=== PATIENT | female | born 1960 | race Caucasian/White ===

== ENCOUNTER 2018-11-08 07:01 | Outpatient (CLI) | payer MEDICAID | END 2018-11-08 07:02 | disposition critical access hospital (66) | LOC: EMS 07:01 | PROVIDERS: ATTEND Surgery | DX: R10.30 Lower abdominal pain, unspecified (principal); R11.0 Nausea; Z87.19 Personal history of other diseases of the digestive system | CPT/HCPCS: A0425; A0427; A0999 ==

== ENCOUNTER 2018-11-08 07:31 | Inpatient (IN) | payer MEDICAID ==
[2018-11-08] MEDS ORDERED: SODIUM CHLORIDE 0.9% 1,000 ML IV ONE ×2 (07:48→09:33)
[2018-11-08] MEDS ORDERED: HYDROmorphone 1 MG/ML CARPUJECT IVP STA ×2 (07:48→10:10)
[2018-11-08] MEDS ORDERED: KETOROLAC 30 MG/ML VIAL IVP STA (07:48)
--- NOTE | 2018-11-08 07:51 | ED Physician Documentation ---
PD HPI ABD PAIN - Stated complaint Stated Complaint: ABD PX - History obtained from History obtained from: Patient - History of Present Illness Timing - onset: How many hours ago (5), Today (awakened from sleep about 2 am with mid abd pain/cramping associated with vomiting. Did have a small bowel movement about 3:30 AM without any relief of the pain. She has had repetitive vomiting multiple times through the night. She denied any fever. She did not have any cold or flu symptoms the last few days. She states this feels similar to a bowel obstruction she had in 2016 that was treated nonoperatively.) Timing - duration: Hours (5) Timing - details: Abrupt onset, Still present Quality: Cramping, Aching, Fullness/distended, Pain Location: All over / everywhere, Periumbilical Radiation: No: Chest, Lower back Improved by: No: Vomiting, BM Worsened by: Moving, Palpation Associated symptoms: Nausea, Vomiting. No: Fever, Diarrhea, Constipation, Dysuria, Chest pain Similar symptoms before: Diagnosis (SBO 2016 treated nonoperatively) Recently seen: Not recently seen Review of Systems Constitutional: denies: Fever, Chills, Myalgias Nose: denies: Rhinorrhea / runny nose, Congestion Throat: denies: Sore throat Cardiac: denies: Chest pain / pressure Respiratory: denies: Cough GI: reports: Abdominal Pain, Abdominal Swelling, Nausea, Vomiting. denies: Constipation, Diarrhea, Bloody / black stool : denies: Dysuria, Frequency Neurologic: denies: Generalized weakness, Near syncope PD PAST MEDICAL HISTORY - Past Medical History Cardiovascular: None Respiratory: None Neuro: None Endocrine/Autoimmune: None - Present Medications Home Medications: Ambulatory Orders Medication Instructions Recorded Confirmed Dessicated Thyroid Otc 0 mg PO DAILY 11/08/18 11/08/18 - Allergies Allergies/Adverse Reactions: Allergies Allergy/AdvReac Type Severity Reaction Status Date / Time No Known Drug Allergies Allergy Verified 11/08/18 07:41 PD ED PE NORMAL - Vitals Vital signs reviewed: Yes - General General: Alert and oriented X 3, Well developed/nourished, Other (appears very uncomfortable. ) - HEENT HEENT: PERRL (nonicteric), Moist mucous membranes, Pharynx benign - Neck Neck: Supple, no meningeal sign, No adenopathy - Cardiac Cardiac: RRR, No murmur - Abdomen Abdomen: Non distended (but does feel firm in mid abdomen.), No organomegaly, Other (tender mid abdomen to palpation and percussion. Not tender RUQ/RLQ focally. ). No: Normal bowel sounds (increased centrally) - Female Female : Deferred - Rectal Rectal: Deferred - Back Back: No CVA TTP - Derm Derm: Normal color, Warm and dry - Extremities Extremities: No tenderness to palpate, Normal ROM s pain, No edema - Neuro Neuro: Alert and oriented X 3, No motor deficit, Normal speech Results - Vitals Vitals: Vital Signs - 24 hr 11/08/18 11/08/18 07:33 09:30 Temperature 35.8 C L Heart Rate 66 70 Respiratory 24 14 Rate Blood Pressure 194/108 H 180/85 H O2 Saturation 100 99 Oxygen O2 Source Room air - Labs Labs: Laboratory Tests 11/08/18 11/08/18 11/08/18 07:35 07:55 07:55 WBC 11.9 H RBC 4.27 Hgb 13.0 Hct 38.9 MCV 91.0 MCH 30.3 MCHC 33.3 RDW 14.6 Plt Count 267 MPV 7.9 Neut # (Auto) 10.2 H Lymph # (Auto) 1.4 L Meade # (Auto) 0.2 Eos # (Auto) 0.0 Baso # (Auto) 0.0 Absolute Nucleated RBC 0.00 Nucleated RBC % 0.0 Sodium 135 Potassium 3.2 L Chloride 100 L Carbon Dioxide 23 Anion Gap 12.0 BUN 13 Creatinine 0.6 Estimated GFR (MDRD) 103 Glucose 186 H Lactic Acid Calcium 9.1 Magnesium Total Bilirubin 0.6 AST 28 ALT 21 Alkaline Phosphatase 74 C-Reactive Protein Total Protein 7.4 Albumin 4.5 Globulin 2.9 Albumin/Globulin Ratio 1.6 Lipase 26 Carcinoembryonic Ag 2.0 Urine Color Urine Clarity Urine pH Ur Specific Linwood Urine Protein Urine Glucose (UA) Urine Ketones Urine Occult Blood Urine Nitrite Urine Bilirubin Urine Urobilinogen Ur Leukocyte Esterase Urine RBC Urine WBC Ur Squamous Epith Cells Amorphous Sediment Urine Bacteria Ur Microscopic Review Urine Culture Comments 11/08/18 11/08/18 11/08/18 07:55 07:55 08:40 WBC RBC Hgb Hct MCV MCH MCHC RDW Plt Count MPV Neut # (Auto) Lymph # (Auto) Meade # (Auto) Eos # (Auto) Baso # (Auto) Absolute Nucleated RBC Nucleated RBC % Sodium Potassium Chloride Carbon Dioxide Anion Gap BUN Creatinine Estimated GFR (MDRD) Glucose Lactic Acid Calcium Magnesium 2.1 Total Bilirubin AST ALT Alkaline Phosphatase C-Reactive Protein < 1.0 Total Protein Albumin Globulin Albumin/Globulin Ratio Lipase Carcinoembryonic Ag Urine Color YELLOW Urine Clarity CLEAR Urine pH 8.0 H Ur Specific Linwood 1.020 Urine Protein TRACE Urine Glucose (UA) 100 H Urine Ketones TRACE Urine Occult Blood MODERATE H Urine Nitrite NEGATIVE Urine Bilirubin NEGATIVE Urine Urobilinogen 0.2 (NORMAL) Ur Leukocyte Esterase NEGATIVE Urine RBC 6-10 H Urine WBC 0-3 Ur Squamous Epith Cells RARE Squamous Amorphous Sediment Few Urine Bacteria Rare Ur Microscopic Review INDICATED Urine Culture Comments NOT INDICATED 11/08/18 11:00 WBC RBC Hgb Hct MCV MCH MCHC RDW Plt Count MPV Neut # (Auto) Lymph # (Auto) Meade # (Auto) Eos # (Auto) Baso # (Auto) Absolute Nucleated RBC Nucleated RBC % Sodium Potassium Chloride Carbon Dioxide Anion Gap BUN Creatinine Estimated GFR (MDRD) Glucose Lactic Acid 2.9 H Calcium Magnesium Total Bilirubin AST ALT Alkaline Phosphatase C-Reactive Protein Total Protein Albumin Globulin Albumin/Globulin Ratio Lipase Carcinoembryonic Ag Urine Color Urine Clarity Urine pH Ur Specific Linwood Urine Protein Urine Glucose (UA) Urine Ketones Urine Occult Blood Urine Nitrite Urine Bilirubin Urine Urobilinogen Ur Leukocyte Esterase Urine RBC Urine WBC Ur Squamous Epith Cells Amorphous Sediment Urine Bacteria Ur Microscopic Review Urine Culture Comments - Rads (name of study) abd CT Radiology: Prelim report reviewed (Edematous wall in the descending colon with some pericolonic edema. No true obstruction pattern per se.) PD MEDICAL DECISION MAKING - ED course Complexity details: reviewed results (CT is revealing some large bowel colitis. This could be inflammatory infectious or potentially ischemic. She has not had vascular problems in the past. She is in the normal rhythm. We can give some doses of anti-inflammatory as well as antibiotics for the potential of infectious. She is still having significant pain and nausea. She is not vomiting anymore. I therefore think a pseudoobstruction type pattern related to the colitis. I talked with the hospitalist and will have her in for treatment.), considered differential, d/w patient Departure - Departure Disposition: [facility] DC/Xfer Clinical Impression: Acute colitis, Pseudo-obstruction of intestine Abdominal pain Qualifiers: Abdominal location: periumbilical Qualified Code(s): R10.33 - Periumbilical pain Condition: Stable Record reviewed to determine appropriate education?: Yes Discharge Date/Time: 11/08/18 12:54
[2018-11-08 08:03] LABS: BASOPHILS % (AUTO) 0.1 %; EOSINOPHILS % (AUTO) 0.1 %; LYMPHOCYTES # (AUTO) 1.4 10^3/uL (1.5-3.5); LYMPHOCYTES % (AUTO) 11.9 %; MEAN CORPUSCULAR HEMOGLOBIN 30.3 pg (27.0-31.0); MEAN CORPUSCULAR HGB CONC 33.3 g/dL (32.0-36.0); MEAN PLATELET VOLUME 7.9 fL (7.9-10.8); MONOCYTES # (AUTO) 0.2 10^3/uL (0.0-1.0); MONOCYTES % (AUTO) 2.1 %; NEUTROPHILS # (AUTO) 10.2 10^3/uL (1.5-6.6); NEUTROPHILS % (AUTO) 85.8 %; PLT - PLATELET COUNT 267 10^3/uL (130-450); RED BLOOD COUNT 4.27 10^6/uL (4.20-5.40); RED CELL DISTRIBUTION WIDTH 14.6 % (12.0-15.0); WHITE BLOOD COUNT 11.9 x10^3/uL (4.8-10.8)
[2018-11-08] MEDS ORDERED: IOVERSOL 320 100 ML VIAL IVP ONE ×2 (08:11→20:28)
[2018-11-08 08:16] LABS: ALBUMIN 4.5 g/dL (3.2-5.5); ALBUMIN/GLOBULIN RATIO 1.6 (1.0-2.2); BILIRUBIN,TOTAL 0.6 mg/dL (0.2-1.0); CALCIUM 9.1 mg/dL (8.5-10.3); CREATININE 0.6 mg/dL (0.4-1.0); TOTAL PROTEIN 7.4 g/dL (6.7-8.2)
[2018-11-08 08:47] LABS: BILIRUBIN,URINE NEGATIVE (NEGATIVE); GLUCOSE, URINE (UA) 100 mg/dL (NEGATIVE); KETONES,URINE (UA) TRACE mg/dL (NEGATIVE); LEUKOCYTE ESTERASE, URINE NEGATIVE (NEGATIVE); NITRITE,URINE NEGATIVE (NEGATIVE); OCCULT BLOOD,URINE MODERATE (NEGATIVE); PROTEIN,URINE TRACE mg/dL (NEGATIVE); UROBILINOGEN,URINE 0.2 (NORMAL) E.U./dL (NORMAL)
[2018-11-08 08:48] LABS: CLARITY,URINE CLEAR (CLEAR)
[2018-11-08] MEDS: IOVERSOL 320 100 ML VIAL IVP ONE ×2 (09:00→20:45)
[2018-11-08 09:03] LABS: AMORPHOUS SEDIMENT,UR Few /LPF; BACTERIA,URINE Rare /HPF (None Seen); SQUAMOUS EPITHELIAL CELL,UR RARE Squamous (<= Few)
[2018-11-08] MEDS ORDERED: ONDANSETRON 4 MG/2 ML VIAL IVP STA (09:33)
[2018-11-08] MEDS ORDERED: ACETAMINOPHEN 1,000 MG/100 ML 100 ML IV STA (09:33)
--- NOTE | 2018-11-08 10:15 | CT Report ---
Reason: mid abd pain and vomiting; prior SBO Procedure Date: 11/08/2018 Accession Number: [id number] / [id number] Procedure: CT - Abdomen/Pelvis W/ CPT Code: FULL RESULT: EXAM: CT ABDOMEN AND PELVIS WITH CONTRAST EXAM DATE: 11/08/2018 08:46 AM. CLINICAL HISTORY: Mid abdominal pain and vomiting in a 58-year-old female with history of prior small bowel obstruction. COMPARISONS: None. TECHNIQUE: Emergent axial helical CT imaging was performed through the abdomen and pelvis. IV contrast: 80 mL Optiray 320. Enteric contrast: None. Reconstructions: Coronal and sagittal. In accordance with CT protocol optimization, one or more of the following dose reduction techniques were utilized for this exam: automated exposure control, adjustment of mA and/or KV based on patient size, or use of iterative reconstructive technique. FINDINGS: Lung Bases: Unremarkable. Liver: Normal. No masses. Gallbladder/Bile Ducts: No gallstones, wall thickening or dilated bile ducts. Spleen: Normal. Pancreas: Normal. Adrenal Glands: Normal. Kidneys: Normal. No masses, nephrolithiasis, hydroureter or hydronephrosis. Peritoneal Cavity/Bowel: Small amount of free fluid in the left upper quadrant adjacent to the spleen as well as small amount of ascites in the deep pelvis. Stomach and proximal to mid small bowel appear normal. Mild to moderate thickening of the left colon. Moderate stool in the right colon. No obstruction. Pelvic Organs: Small to moderate amount of free fluid in the deep pelvis. Uterus surgically absent. No adnexal mass or cyst. Contrast in a grossly normal urinary bladder. Vasculature: No aneurysms or other significant abnormality. Bones: Unremarkable for age. Other: None. IMPRESSION: Small amount of free fluid in the left upper quadrant and pelvis with edematous changes of the left colon with pericolonic edema suggesting inflammatory bowel disease. No definite obstruction. No free air or abscess. Remainder of the abdomen and pelvis unremarkable. RADIA
[2018-11-08] MEDS ORDERED: metroNIDAZOLE 500 MG/100 ML 500 MG/100 ML BAG IV ONE (11:01)
[2018-11-08] MEDS ORDERED: cefTRIAXone 1 GM VIAL IVP STA (11:01)
[2018-11-08] MEDS ORDERED: HYDROmorphone 0.5 MG/0.5 ML SYRINGE IVP PRN (11:58)
[2018-11-08] MEDS ORDERED: LACTATED RINGERS 1,000 ML IV SCH (12:00)
[2018-11-08] MEDS ORDERED: metroNIDAZOLE 500 MG/100 ML 500 MG/100 ML BAG IV STA (12:11)
[2018-11-08] MEDS ORDERED: ACETAMINOPHEN 1,000 MG/100 ML 100 ML IV PRN (12:14)
[2018-11-08] MEDS: ONDANSETRON 4 MG/2 ML VIAL IVP PRN ×2 (13:13→19:23)
[2018-11-08] MEDS: FAMOTIDINE 20 MG/50 ML 50 ML IV SCH ×2 (13:45→20:32)
[2018-11-08] MEDS: HYDROmorphone 0.5 MG/0.5 ML SYRINGE IVP PRN ×3 (14:00→21:13)
[2018-11-08] MEDS: SODIUM CHLORIDE FLUSH 0.9% 10 ML SYRINGE IVP PRN ×2 (14:01→15:50)
[2018-11-08] MEDS: PROCHLORPERAZINE 10 MG/2 ML VIAL IVP PRN ×2 (15:49→23:13)
[2018-11-08] MEDS: KETOROLAC 15 MG/ML VIAL IVP SCH (16:26)
[2018-11-08] MEDS: SODIUM CHLORIDE FLUSH 0.9% 10 ML SYRINGE IVP SCH (17:22)
[2018-11-08] MEDS ORDERED: metroNIDAZOLE 500 MG/100 ML 500 MG/100 ML BAG IV SCH (19:00)
[2018-11-08] MEDS ORDERED: DIATR MEGLU/DIATRIZOATE SODIUM 120 ML BOTTLE PO ONE (19:09)
--- NOTE | 2018-11-08 22:06 | CT Report ---
Reason: LLQ pain/worse sepsis, poss ischmic bowel or perf Procedure Date: 11/08/2018 Accession Number: [id number] / [id number] Procedure: CT - Abdomen/Pelvis Angio CPT Code: FULL RESULT: EXAM: CT ANGIOGRAM ABDOMEN AND PELVIS WITH CONTRAST EXAM DATE: 11/08/2018 08:53 PM. CLINICAL HISTORY: Left lower quadrant pain/worse sepsis, poss ischemic bowel or perf. COMPARISONS: ABDOMEN/PELVIS W/ 11/08/2018 8:46 AM. TECHNIQUE: Routine helical CT angiogram imaging was performed through the abdomen and pelvis in the arterial phase. IV contrast: OPTIRAY 320 100mL. Enteric contrast: No. Reconstructions: Coronal, sagittal, and 3D MIP reconstructions. In accordance with CT protocol optimization, one or more of the following dose reduction techniques were utilized for this exam: automated exposure control, adjustment of mA and/or KV based on patient size, or use of iterative reconstructive technique. FINDINGS: Lung bases: Mild distal esophageal wall thickening. Liver: Unremarkable. Gallbladder: Unremarkable. Bile ducts: Unremarkable. Pancreas: Unremarkable. Spleen: Unremarkable. Adrenals: Unremarkable. Kidneys: No hydronephrosis. Small right lower pole renal cyst measuring 1.3 cm. Tiny nonspecific low density upper pole left kidney. Bowel: Multiple dilated small bowel loops seen in the abdomen and pelvis more on the left side, more dilated than on the prior exam, one of the most dilated ducts bowel loops is seen in the pelvis measuring 4.5 cm. There is focal transition to decompressed small bowel seen on the right side of the abdomen see axial image 115. These findings are concerning for worsening small bowel obstruction. Evaluation is limited without oral contrast limiting the evaluation for bowel wall thickening, with small bowel loops on the left side appearing less thickened than on the prior, however they are more dilated on today's exam. No pneumatosis is seen. Small bowel loops are decompressed distal to this. There is adjacent edema and ascites. Overall moderate ascites in the abdomen and pelvis, increased from the prior. No free air. Pelvis: The bladder is filled with contrast. Remaining pelvic organs appear unremarkable. Vasculature: No acute findings. No abdominal aortic aneurysm. The celiac and superior mesenteric arteries appear patent. No evidence for arterial occlusion or hemodynamically significant stenosis. The inferior mesenteric artery appears patent. Bilateral renal arteries appear patent. The bilateral iliac arteries appear unremarkable. Bones: No acute bone findings. IMPRESSION: 1. Multiple dilated small bowel loops seen in the abdomen and pelvis more on the left side, more dilated than on the prior exam, one of the most dilated ducts bowel loops is seen in the pelvis measuring 4.5 cm. There is focal transition to decompressed small bowel seen on the right side of the abdomen see axial image 115. These findings are concerning for worsening small bowel obstruction. Clinically, the lactic acid is increasing. This could represent a closed loop small bowel obstruction causing strangulation of the small bowel and small bowel ischemia. Correlate clinically. No pneumatosis is seen. There is adjacent edema and ascites. Overall moderate ascites in the abdomen and pelvis, increased from the prior. No free air. No evidence for bowel perforation. See above. 2. Mild distal esophageal wall thickening. 3. The superior mesenteric artery appears patent. No evidence for arterial occlusion or hemodynamically significant stenosis. NADEEMA The above findings were discussed with Yue Haynes by Dr. Jazmin Grayson at 09:55 PM hrs on 11/08/2018.
[2018-11-08] MEDS: LACTATED RINGERS 1,000 ML IV SCH (22:17)
[2018-11-08 22:52] LABS: BASOPHILS % (AUTO) 0.2 %; HGB - HEMOGLOBIN 14.2 g/dL (12.0-16.0); LYMPHOCYTES % (AUTO) 4.6 %; MEAN CORPUSCULAR HEMOGLOBIN 30.6 pg (27.0-31.0); MEAN CORPUSCULAR HGB CONC 33.2 g/dL (32.0-36.0); MEAN CORPUSCULAR VOLUME 92.1 fL (81.0-99.0); MEAN PLATELET VOLUME 7.9 fL (7.9-10.8); MONOCYTES % (AUTO) 4.1 %; NEUTROPHILS % (AUTO) 91.1 %; PLT - PLATELET COUNT 290 10^3/uL (130-450); RED BLOOD COUNT 4.64 10^6/uL (4.20-5.40); RED CELL DISTRIBUTION WIDTH 14.7 % (12.0-15.0); WHITE BLOOD COUNT 20.2 x10^3/uL (4.8-10.8)
[2018-11-08 23:01] LABS: ABNORMAL LYMPHS % (MANUAL) 0 %
[2018-11-08 23:04] LABS: ALBUMIN 3.9 g/dL (3.2-5.5); ALBUMIN/GLOBULIN RATIO 1.2 (1.0-2.2); BILIRUBIN,TOTAL 0.9 mg/dL (0.2-1.0); CALCIUM 9.1 mg/dL (8.5-10.3); CREATININE 0.6 mg/dL (0.4-1.0); TOTAL PROTEIN 7.1 g/dL (6.7-8.2)
[2018-11-08 23:20] LABS: BAND NEUTROPHILS % (MANUAL) 7 %; DIFFERENTIAL COMMENT MANUAL DIFFERENTIAL; LYMPHOCYTES # (MANUAL) 0.6 10^3/uL (1.5-3.5); LYMPHOCYTES % (MANUAL) 3 %; MONOCYTES # (MANUAL) 0.2 10^3/uL (0.0-1.0); NEUTROPHILS # (MANUAL) 19.4 10^3/uL (1.5-6.6); NEUTROPHILS % (MANUAL) 89 %; PLATELET ESTIMATE, MANUAL NORMAL (130-450,000) (NORMAL); RBC MORPHOLOGY (MULTIPLE) NORMAL APPEARANCE (NORMAL)
--- NOTE | 2018-11-08 23:36 | CONSULTATION NOTE ---
Referring Provider Name of Referring Provider:: Dr. Haynes Consult Date: 11/08/18 Chief Complaint - Chief Complaint Chief Complaint: Left upper quadrant abdominal pain History of Present Illness - Admitted From Admitted From:: [facility] ED - History Obtained From Records Reviewed: Yes History obtained from: Patient and Dr. Yue Haynes Exam Limitations: Patient mildly somnolent due to pain medication - History of Present Illness HPI Comment/Other: This is a very pleasant 58-year-old female who was evaluated in room 2211 at the request of Dr. Yue Haynes. The patient came in to the emergent department emergency department at [facility] complaining of the rather abrupt onset of left upper quadrant pain. It would point during the interview with Dr. Hodge the patient stated that it felt similar to the small bowel obstruction that she had had that resolved spontaneously back in 2016. The patient was initially nauseous but did not vomit. The patient had a small bowel movement earlier today. The patient denies melena, hematochezia, or hematemesis. The patient denies unexpected weight loss. The pain is described as quite sharp and is unremitting other than with pain medication. Position does not help or hurt the pain. The patient is not currently nauseous. 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 - Past Surgical History /LEGAL DEPARTMENT MANAGER: reports: Hysterectomy, Other - POLST Patient has POLST: No Meds/Allgy - Home Medications Home Medications: Ambulatory Orders Medication Instructions Recorded Confirmed Dessicated Thyroid Otc 0 mg PO DAILY 11/08/18 11/08/18 - Allergies Allergies/Adverse Reactions: Allergies Allergy/AdvReac Type Severity Reaction Status Date / Time No Known Drug Allergies Allergy Verified 11/08/18 07:41 Review of Systems - Gastrointestinal Gastrointestinal: reports: Abdominal pain, Other (No distention, constipation, diarrhea, rectal bleeding, black stools, bile emesis or coffee-ground emesis, or poor appetite.) - All Other Systems All Other Systems: reports: Reviewed and negative Exam - Vital Signs Reviewed Vital Signs: Yes Vital Signs: Vital Signs x48h Temp Pulse Resp BP Pulse Ox 11/08/18 23:23 36.6 C 98 16 130/82 H 93 11/08/18 22:51 36.8 C 96 18 147/88 H 96 11/08/18 21:00 36.2 C L 81 18 163/80 H 98 11/08/18 18:51 37.1 C 86 18 161/89 H 95 11/08/18 17:00 36.4 C L 90 16 171/100 H 98 - Physical Exam General Appearance: positive: No acute distress, Other (Again, mildly somnolent due to pain medication.) Eyes Bilateral: positive: No lid inflammation, Conjunctivae nml, No scleral icterus ENT: positive: No signs of dehydration Neck: positive: Trachea midline Respiratory: positive: Chest non-tender, No respiratory distress, Breath sounds nml Cardiovascular: positive: Regular rate & rhythm, No murmur, No gallop Abdomen: positive: Non-tender (Absolutely no peritoneal findings.), No organomegaly, No distention, Abnml bowel sounds (Ever so slightly decreased.) Rectal: positive: Other (Deferred.) Skin: positive: Color nml Extremities: positive: Non-tender, Nml appearance Neurologic/Psychiatric: positive: Oriented x3, Motor nml, Sensation nml, Mood/affect nml (Again, slightly somnolent but aware of this and stating that it is likely due to the pain medication.) Conclusion/Plan - Diagnosis Diagnosis: Colitis - Plan Plan: I have recommended that the patient have a repeat CT scan with oral contrast to determine whether or not this represents a complete obstruction or partial obstruction. She does not have peritoneal findings. She states that she does not wish to undergo surgery unless absolutely necessary. Other than an elevated lactic acid there is nothing on my initial evaluation that would suggest that the patient has got any abdominal catastrophe. Following the CT scan with oral contrast I would like to reevaluate. Currently, the patient is afebrile, normotensive, not tachycardic, not tachypneic, with a soft nondistended abdomen. I wish to thank Dr. Yue Haynes very much for this consultation and I will follow the patient along with her. 45 minutes of [id number] time spent with the patient, the majority of which was spent in discussion, coordination of care, and completion of the requisite paperwork Elvis disclaimer: This document was created in part using voice recognition technology. Because of the inherent limitations of the system ([employer] user manual states that the licensee understands that speech recognition is a statistical process and that recognition errors are inherent in the process), occasional same sounding word substitutions and grammatical errors do occur and persist despite proofreading. Please read this document for context. - Lab Results Lab results reviewed: Yes Fish Bones: 11/08/18 22:48 11/08/18 22:48 - Diagnostic Imaging Results Diagnostic Imaging Results: positive: Final report reviewed, Read independently
[2018-11-08] MEDS ORDERED: PIPERACILLIN/TAZOBACTAM 3.375 GM in SODIUM CHLORIDE 0.9% MINIBAG 100 ML IV SCH (23:45)
--- NOTE | 2018-11-09 00:07 | HISTORY & PHYSICAL EXAMINATION ---
DATE OF SERVICE: 11/08/2018 Physician: Yue Haynes MD HISTORY OF PRESENT ILLNESS: This is a 58-year-old white female who has no chronic diseases, is on no daily prescription medications. She has a past history of a hysterectomy and 1 subsequent episode of a small-bowel obstruction that was treated with bowel rest, nonsurgically. Patient awoke this morning in the middle of the night with abdominal cramping pain, then nausea and vomiting, and she had 1 small bowel movement but then had worsening abdominal pain plus vomiting and presented to the emergency room. Her imaging shows that she has colitis plus bowel obstruction in that area, and she is being admitted for management of this. PAST MEDICAL HISTORY 1. Hysterectomy. 2. Prior bowel obstruction. ALLERGIES: NONE. MEDICATIONS AT HOME: None. FAMILY HISTORY: Noncontributory. SOCIAL HISTORY: No alcohol use, no cigarette use, no illicit drug use. REVIEW OF SYSTEMS: These symptoms are similar to the bowel obstruction that she had several years ago, except this time there is "more pain." Her nausea has been improved with the antiemetics given here. She feels dizzy with the narcotics, however. There has been no fever, previous diarrhea or constipation. No dysuria. She denies any chest pain, dyspnea, upper respiratory symptoms. She denies any melena or hematochezia and no hematemesis. There was no travel outside the country. A comprehensive review of systems was performed, and the pertinent positives are listed; the rest are negative. PHYSICAL EXAMINATION GENERAL: Thin white female. She appears cachectic. She has sunken eyes. VITAL SIGNS: Blood pressure 180/85, pulse of 60-70 in sinus rhythm, afebrile, room air saturation 99%. HEENT: Reveals dry oral mucosa and very sunken eyes, eye orbits. NECK: Without JVD. CHEST: Clear. HEART: Heart sounds are distant, regular rhythm. No audible murmur. ABDOMEN: Soft, not distended. Negative bowel sounds. No organomegaly. No guarding or rebound. EXTREMITIES: No clubbing, cyanosis, or edema. NEUROLOGIC: Grossly intact. LABORATORY DATA: Sodium 135, potassium 3.2. Normal BUN and creatinine. Normal liver tests. Normal magnesium of 2.1. Lactic acid 2.9 and on repeat 3 hours later 2.7. White blood count 11.9 with a left shift, hemoglobin 13, with a normal MCV and normal platelet count of 267. No INR was done. Urinalysis showed pH of 8 with trace of ketones, moderate occult blood, leukocyte esterase negative, and rare bacteria. IMAGING: Abdomen and pelvis CT showed no gallstones or gallbladder abnormality, normal pancreas, normal kidneys. She has a small amount of free fluid in the left upper quadrant near the spleen and in the deep pelvis. She has mild to moderate thickening of the left colon, and there is stool in the right colon. The uterus is surgically absent. IMPRESSION/DIAGNOSES 1. Sepsis by virtue of elevated lactic acid and colitis. 2. Colitis as per CT imaging. 3. Cachexia on physical exam. 4. Pseudo bowel obstruction, probably related to the bowel wall thickening. No significant dilated loops of bowel or air-fluid levels on imaging, however. The obstructive symptoms are most notable on physical exam. 5. History of prior small-bowel obstruction. 6. Remote abdominal surgery. PLAN 1. Admit patient to a med/surg bed. 2. Treat with IV fluids, bowel rest with n.p.o. status, and NG tube for decompression if she continues to have repeat emesis. 3. Follow her lactic acid until it is below 2. 4. Follow her CRP daily as well. 5. Begin empiric IV antibiotics for colitis treatment in a septic patient which will include ceftriaxone iv and metronidazole IV. 6. Follow her daily CBC, electrolytes and magnesium. Replace electrolytes when needed. 7. A surgical consult will be requested for the possibility of bowel ischemia, since her pain is out of proportion to signs and symptoms of obstruction. 8. Will also order a CEA because, if elevated, would point to a malignant tumor as a possible cause of these symptoms, and her physical exam is suspicious for malignancy because of the significant cachexia. CODE STATUS: FULL CODE. DEEP VENOUS THROMBOSIS PROPHYLAXIS: SCDs. ATTESTATION: Patient is expected to be discharged or transferred to another facility within 96 hours: Yes. TD: 11/08/2018 16:40 DULCE
--- NOTE | 2018-11-09 01:12 | ANESTHESIA ---
Pre-Anesthesia VS, & Labs - Diagnosis Diagnosis Colitis - Procedure exploratory laparotomy Vital Signs: Temp Pulse Resp BP Pulse Ox 36.5 C 103 H 16 148/86 H 98 11/09/18 00:30 11/09/18 01:00 11/09/18 01:00 11/09/18 00:30 11/09/18 01:00 Height 5 ft 6 in Weight (kg) 64.5 kg Body Mass Index 22.9 - NPO Last Fluid Intake: oral contrast 1 hr ago - Is Patient ?: No - Lab Results Current Lab Results: Laboratory Tests 11/09/18 00:05: Lactic Acid 5.3 H* 11/08/18 22:48: Sodium 134 L, Potassium 4.0, Chloride 102, Carbon Dioxide 20 L, Anion Gap 12.0, BUN 18, Creatinine 0.6, Estimated GFR (MDRD) 103, Glucose 173 H, Calcium 9.1, Total Bilirubin 0.9, AST 38, ALT 25, Alkaline Phosphatase 69, Total Protein 7.1, Albumin 3.9, Globulin 3.2, Albumin/Globulin Ratio 1.2 11/08/18 22:48: WBC 20.2 H, RBC 4.64, Hgb 14.2, Hct 42.8, MCV 92.1, MCH 30.6, MCHC 33.2, RDW 14.7, Plt Count 290, MPV 7.9, Neut # (Auto) Not Reportable, Lymph # (Auto) Not Reportable, [place] # (Auto) Not Reportable, Eos # (Auto) Not Reportable, Baso # (Auto) Not Reportable, Absolute Nucleated RBC Not Reportable, Total Counted 100, Band Neuts % (Manual) 7, Abnorm Lymph % (Manual) 0, Nucleated RBC % Not Reportable, Neutrophils # (Manual) 19.4 H, Lymphocytes # (Manual) 0.6 L, Monocytes # (Manual) 0.2, Eosinophils # (Manual) 0.0, Basophils # (Manual) 0.0, Differential Comment MANUAL DIFFERENTIAL, Manual Slide Review Indicated, Platelet Estimate NORMAL (130-450,000), RBC Morph Micro Appear NORMAL APPEARANCE 11/08/18 21:20: Lactic Acid 6.5 H* 11/08/18 17:35: Lactic Acid 5.0 H* 11/08/18 14:30: Lactic Acid 2.7 H 11/08/18 11:00: Lactic Acid 2.9 H 11/08/18 07:55: Magnesium 2.1 11/08/18 07:55: C-Reactive Protein < 1.0 11/08/18 07:55: Sodium 135, Potassium 3.2 L, Chloride 100 L, Carbon Dioxide 23, Anion Gap 12.0, BUN 13, Creatinine 0.6, Estimated GFR (MDRD) 103, Glucose 186 H, Calcium 9.1, Total Bilirubin 0.6, AST 28, ALT 21, Alkaline Phosphatase 74, Total Protein 7.4, Albumin 4.5, Globulin 2.9, Albumin/Globulin Ratio 1.6, Lipase 26 11/08/18 07:55: WBC 11.9 H, RBC 4.27, Hgb 13.0, Hct 38.9, MCV 91.0, MCH 30.3, MCHC 33.3, RDW 14.6, Plt Count 267, MPV 7.9, Neut # (Auto) 10.2 H, Lymph # (Auto) 1.4 L, [place] # (Auto) 0.2, Eos # (Auto) 0.0, Baso # (Auto) 0.0, Absolute Nucleated RBC 0.00, Nucleated RBC % 0.0 11/08/18 07:35: Carcinoembryonic Ag 2.0 Fish Bones: 11/08/18 22:48 11/08/18 22:48 Home Medications and Allergies Home Medications: Ambulatory Orders Dessicated Thyroid Otc 0 mg PO DAILY 11/08/18 Active Medications Hydromorphone HCl (Dilaudid Inj Syringe) 1 mg IVP Q2H PRN PRN Reason: Pain 8 to 10 Last Admin: 11/08/18 21:13 Dose: 1 mg Famotidine (Pepcid 20 Mg/50 Ml) 50 mls @ 100 mls/hr IV BID JACQUES Last Infusion: 11/08/18 21:29 Dose: Infused Metronidazole (Flagyl 500 Mg/100 Ml) 500 mg in 100 mls @ 100 mls/hr IV Q8H JACQUES Last Infusion: 11/08/18 20:20 Dose: Infused Acetaminophen (Ofirmev) 100 mls @ 400 mls/hr IV Q6HR PRN PRN Reason: Pain or Fever > 38C (100.4F) Last Infusion: 11/08/18 17:54 Dose: Infused Lactated Ringer's (Lr) 1,000 mls @ 200 mls/hr IV .Q5H [facility] Last Admin: 11/08/18 22:17 Dose: 200 mls/hr Piperacillin Sod/Tazobactam (Sod 3.375 gm/ Sodium Chloride) 100 mls @ 200 mls/hr IV Q6HR [facility] Last Infusion: 11/09/18 00:30 Dose: Infused Ketorolac Tromethamine (Toradol Inj (15mg)) 15 mg IVP Q8H [facility] Stop: 11/13/18 16:59 Last Admin: 11/08/18 16:26 Dose: 15 mg Ondansetron HCl (Zofran Inj) 4 mg IVP Q6HR PRN PRN Reason: Nausea / Vomiting Last Admin: 11/08/18 19:23 Dose: 4 mg Polyethylene Glycol (Miralax) 17 gm PO DAILY [facility] Prochlorperazine Edisylate (Compazine Inj) 10 mg IVP Q6HR PRN PRN Reason: Nausea / Vomiting Last Admin: 11/08/18 23:13 Dose: 10 mg Sodium Chloride (Normal Saline Flush 0.9%) 10 ml IVP PRN PRN PRN Reason: NEEDED PER PROVIDER ORDERS Last Admin: 11/08/18 15:50 Dose: 10 ml Sodium Chloride (Normal Saline Flush 0.9%) 10 ml IVP 0100,0900,1700 [facility] Last Admin: 11/08/18 17:22 Dose: Not Given Dessicated Thyroid Otc 0 mg PO DAILY 11/08/18 Allergies/Adverse Reactions: Allergies Allergy/AdvReac Type Severity Reaction Status Date / Time No Known Drug Allergies Allergy Verified 11/08/18 07:41 Anes History & Medical History - Anesthetic History Anesthesia Complications: reports: No previous complications - Medical History Cardiovascular: reports: None Pulmonary: reports: None Gastrointestinal: reports: None Urinary: reports: None Neuro: reports: None Musculoskeletal: reports: None Endocrine/Autoimmune: reports: HyPOthyroidism Blood Disorders: reports: None Psychosocial: reports: Cannabis (daily use) - Surgical History Gynecologic: Hysterectomy, Other Exam General: Alert, Oriented x3, Cooperative, No acute distress Dental: WNL Mouth Openin Fingerbreadth Neck Mobility: Normal Mallampati classification: II Thyromental Distance: less than 4 cm Respiratory: Lungs clear, Normal breath sounds, No respiratory distress, No accessory muscle use Cardiovascular: Regular rate, Normal S1, Normal S2, No murmurs Mental/Cognitive Status: Alert/Oriented X3, Normal for patient Plan Anesthesia Type: General Consent for Procedure(s) Verified and Reviewed: Yes Code Status: Attempt Resuscitation ASA classification: 3-Severe systemic disease Is this case an emergency?: Yes
[2018-11-09] MEDS: KETOROLAC 15 MG/ML VIAL IVP SCH (01:49)
[2018-11-09] MEDS ORDERED: LACTATED RINGERS 1,000 ML IV ONE ×2 (02:03→02:48)
[2018-11-09] MEDS: SODIUM CHLORIDE FLUSH 0.9% 10 ML SYRINGE IVP SCH ×3 (02:09→16:42)
[2018-11-09] MEDS: LACTATED RINGERS 1,000 ML IV SCH ×2 (02:09→02:10)
[2018-11-09] MEDS ORDERED: PHENYLEPHRINE 50 MG/5 ML VIAL IV ONE (03:08)
[2018-11-09] MEDS ORDERED: MIDAZOLAM 2 MG/2 ML VIAL IVP ONE (03:08)
[2018-11-09] MEDS ORDERED: GLYCOPYRROLATE 1 MG/5 ML VIAL IVP ONE (03:08)
[2018-11-09] MEDS ORDERED: PROPOFOL 200 MG/20 ML VIAL IVP ONE (03:08)
[2018-11-09] MEDS ORDERED: VECURONIUM 10 MG VIAL IVP ONE (03:08)
[2018-11-09] MEDS ORDERED: SUCCINYLCHOLINE 200 MG/10 ML VIAL IVP ONE (03:08)
[2018-11-09] MEDS ORDERED: fentaNYL 250 MCG/5 ML VIAL IVP ONE (03:08)
[2018-11-09] MEDS ORDERED: NEOSTIGMINE 1 MG/1 ML 10 ML MDV IVP ONE (03:08)
[2018-11-09] MEDS ORDERED: BACITRACIN OINT TOP ONE (03:19)
--- NOTE | 2018-11-09 03:34 | OPERATIVE REPORT ---
Operative Report - General Admit Date: 11/08/18 Planned Procedure: Exploratory laparotomy, possible small bowel resection, possible colon rese Pre-Op Diagnosis: Abdominal catastrophe Procedure Performed: Exploratory laparotomy with resection of 13 inches of necrotic ileum and ileal- ileostomy Post Op Diagnosis: Necrotic 13 inches of ileum due to very tight band (closed loop obstruction - Procedure Note Primary Surgeon: Bhanu Olvera MD Anesthesia Provider: Dio Smith CRNA Anesthesia Technique: General ET tube IV Fluids (mL): 1,400 Estimated Blood Loss (mL): 5 Urine Output (mL): 125 Drain/Tube Type: Other (None) Complications: None - Other Other Information/Narrative: OPERATIVE DESCRIPTION/REPORT: After verbal and written informed consent was obtained detailing the risks of infection, bleeding requiring transfusion with its risks, nerve injury, and , as well as the possibility of a colostomy, and after I met with the patient confirming the surgery, the patient was brought to the operative suite and placed supine on the operating table. Great care was taken to avoid pressure points to prevent pressure necrosis or nerve injury. Monitoring d evices were applied along with TEDs and pneumatic compressive stockings (to prevent DVT). The patient received preoperative antibiotics for surgical prophylaxis. Dio Smith CRNA sedated and anesthetized the patient for the entire procedure. The patient was prepped and draped in the usual sterile manner. A "time in" then confirmed that the patient was identified with 3 identifiers (name, date and medical record number), the history and physical was in the chart, the signed consent confirming the procedure was in the chart, the patient was in the correct position, the aforementioned prophylactic measures were in place or given, we had the correct personnel and equipment to complete the procedure and that anesthesia, surgery and nursing were given an opportunity to express any concerns. With the agreement of everyone in the room, we proceeded with the operation. A midline incision was made infraumbilically tracing the upper half of the previous incision and taken down to the fascia. The incision extended from the umbilicus to fpc above the pubic tubercle. Once this was taken down to the fascia, the fascia and peritoneum were opened without incident or difficulty. I removed almost 900 mL of dark serous fluid. It was immediately obvious that there was approximately 13 inches of necrotic ileum being choked by a very tight adhesive band approximately the diameter of a dime. I incised that adhesion release in the bowel but it was clear that this bowel was necrotic and would not reperfuse and survive. Notably the distal colon was a bit dusky, but it was clear that this bowel would survive. I used 2 applications of the MARIA C-75 stapler to excise the necrotic bowel. The mesentery was taken using serial application of the LigaSure and the specimen was removed from the operative field. This was done as quickly as possible to avoid any release of acute phase reactants. The dilated proximal and decompressed distal ileum more than "lined up" with 3-0 Vicryl sutures for a side to side antimesenteric anastomosis. The mesenteric defect was closed using a running 3-0 Vicryl suture. With the sutures in place the antimesenteric corner of the staple line was cut off of each of the 2 pieces of bowel and a MARIA C stapler was placed through these openings and fired thus creating the ileoileostomy. The now combined opening in the bowel was closed using another application of the MARIA C 75 stapler taking care not to align the staple lines. The staple lines were then oversewn using interrupted 3-0 Vicryl Lembert sutures. Digital examination revealed the anas tomosis to be widely patent and visual examination revealed that there was no vascular compromise of the bowel. The liver was palpably normal. The small bowel was run from ligament of Treitz to ileocecal valve and with the exception of the anastomosis was noted to be entirely normal. The large bowel appear to be normal with the presence of some hard stool within it. The abdomen was copiously irrigated with over 2 L of warm saline. The fascia was closed using a 0 looped PDS in a running fashion. The fascial closure was started superiorly and run inferiorly a. The subcutaneous tissues w ere copiously irrigated using warm sterile saline and meticulous hemostasis was obtained using Bovie electrocautery. The skin was approximated using skin lea. At this point a time out was performed that confirmed that all the counts were correct, the procedure that was performed, the blood loss, the urine output, the IV fluids administered, and the patients condition. Bacitracin ointment and a dressing were placed on the wound. Having tolerated the procedure well, the patient was subsequently extubated and taken to recovery room in good and stable condition. Elvis disclaimer: This document was created in part using voice recognition technology. Because of the inherent limitations of the system ([employer]'s [employer] user manual states that the licensee understands that speech recognition is a statistical process and that recognition errors are inherent in the process), occasional same sounding word substitutions and grammatical errors do occur and persist despite proofreading. Please read this document for context.
[2018-11-09] MEDS: HYDROmorphone 0.5 MG/0.5 ML SYRINGE IVP PRN ×5 (03:41→19:58)
[2018-11-09] MEDS ORDERED: HYDROmorphone 0.5 MG/0.5 ML SYRINGE ONE (03:45)
[2018-11-09] MEDS: D5NS W/20 MEQ KCL 1,000 ML IV SCH ×3 (04:49→23:50)
[2018-11-09] MEDS: ONDANSETRON 4 MG/2 ML VIAL IVP PRN (04:51)
[2018-11-09] MEDS: ACETAMINOPHEN 1,000 MG/100 ML 100 ML IV SCH ×4 (04:54→21:44)
[2018-11-09] MEDS: PIPERACILLIN/TAZOBACTAM 3.375 GM in SODIUM CHLORIDE 0.9% MINIBAG 100 ML IV SCH ×4 (05:36→23:49)
[2018-11-09 06:09] LABS: BASOPHILS % (AUTO) 0.1 %; HGB - HEMOGLOBIN 12.3 g/dL (12.0-16.0); LYMPHOCYTES # (AUTO) 1.1 10^3/uL (1.5-3.5); LYMPHOCYTES % (AUTO) 7.9 %; MEAN CORPUSCULAR HGB CONC 32.2 g/dL (32.0-36.0); MEAN PLATELET VOLUME 8.2 fL (7.9-10.8); MONOCYTES # (AUTO) 0.8 10^3/uL (0.0-1.0); MONOCYTES % (AUTO) 5.7 %; NEUTROPHILS # (AUTO) 12.5 10^3/uL (1.5-6.6); NEUTROPHILS % (AUTO) 86.3 %; PLT - PLATELET COUNT 247 10^3/uL (130-450); RED CELL DISTRIBUTION WIDTH 14.2 % (12.0-15.0); WHITE BLOOD COUNT 14.5 x10^3/uL (4.8-10.8)
[2018-11-09 06:21] LABS: CALCIUM 8.5 mg/dL (8.5-10.3); CREATININE 0.6 mg/dL (0.4-1.0); CRP - C-REACTIVE PROTEIN 3.7 mg/dL (0-1.0)
[2018-11-09] MEDS: PANTOPRAZOLE 40 MG VIAL IVP SCH (06:42)
--- NOTE | 2018-11-09 07:20 | XRAY Report ---
Reason: ng tube placement Procedure Date: 11/09/2018 Accession Number: [id number] / [id number] Procedure: XR - Chest 1 View X-Ray CPT Code: 45993 FULL RESULT: EXAM: CHEST RADIOGRAPHY EXAM DATE: 11/09/2018 06:48 AM. CLINICAL HISTORY: NG tube placement. COMPARISON: ABDOMEN/PELVIS W/O 11/09/2018 12:23 AM. TECHNIQUE: 1 view. FINDINGS: Support apparatus: NG tube tip is in the fundus of the stomach. Lungs/Pleura: No focal opacities evident. No pleural effusion. No pneumothorax. Mediastinum: Within exam limitations, the cardiomediastinal contour is normal. Other: There is new pneumoperitoneum under the right hemidiaphragm, not seen on CT of the abdomen and pelvis performed earlier today. IMPRESSION: 1. New pneumoperitoneum under the right hemidiaphragm. This was not seen on CT of the abdomen and pelvis performed earlier today. 2. NG tube tip is in the fundus of the stomach. 3. No focal pulmonary consolidation or other acute cardiopulmonary abnormality. RADIA The call report notification system was initiated by Dr. Ruben Faye at 07:17 AM hrs on 11/09/2018. ADDENDUM: 11/09/18 07:28 The above findings were discussed with Dr. Olvera by Dr. Ruben Faye at 07:28 AM hrs on 11/09/2018. Additional clinical information provided by the clinician: The patient had undergone interval abdominal surgery, which likely accounts for the new free air under the diaphragm.
[2018-11-09] MEDS: ENOXAPARIN 40 MG/0.4 ML SYRINGE SUBQ SCH (08:39)
[2018-11-09] MEDS ORDERED: POLYETHYLENE GLYCOL 3350 17 GM PACKET PO SCH (09:00)
[2018-11-09] MEDS ORDERED: cefTRIAXone 2 GM in SODIUM CHLORIDE 0.9% MINIBAG 100 ML IV SCH (09:00)
--- NOTE | 2018-11-09 09:07 | PROVIDER PROGRESS NOTE ---
Assessment/Plan - Problem List (1) Ischemic necrosis of small bowel Assessment/Plan: Repeat imaging last night after admission showed a small bowel obstruction with ischemia. The patient required emergency bowel surgery at 0100 this a.m. She had 13" of bowel resected and a ileal-ileal anastamosis, no colostomy, now has ng tube, and antibiotics were broadened. The CEA was normal. Continue bowel rest, ng tube decompression, iv Zosyn, iv fluids, remain in ICU. Continue Incentive Spirometry. Appreciate GI Surgeon following along with us. (2) Sepsis Assessment/Plan: This a.m. she spiked a fever. He Lactic acid apollo last night parelleling her worsened condition, requiring surgery. Follow L.A. til normalizes. Continue iv antibiotics treating for a GI source of infection. Continue iv Ofirmev for fever and pain and iv narcotics if necessary. Continue iv fluids. - Current Meds Current Meds: Current Medications Generic Name Dose Route Start Last Admin Trade Name Freq PRN Reason Stop Dose Admin Enoxaparin Sodium 40 mg 11/09/18 09:00 11/09/18 08:39 Lovenox SUBQ 40 mg DAILY JACQUES Administration Hydromorphone HCl 1 mg 11/08/18 13:45 11/09/18 05:50 Dilaudid Inj Syringe IVP 1 mg Q2H PRN Administration Pain 8 to 10 Potassium Chloride/Dextrose/Sod Cl 1,000 mls @ 125 mls/hr 11/09/18 04:00 11/09/18 07:00 IV 125 mls/hr .Q8H JACQUES Infusion Acetaminophen 100 mls @ 400 mls/hr 11/09/18 04:00 11/09/18 05:09 Ofirmev IV Infused Q6H JACQUES Infusion Piperacillin Sod/Tazobactam 100 mls @ 200 mls/hr 11/09/18 06:00 11/09/18 0 6:06 Sod 3.375 gm/ Sodium Chloride IV 11/14/18 05:59 Infused Q6HR JACQUES Infusion Ondansetron HCl 4 mg 11/08/18 11:58 11/09/18 04:51 Zofran Inj IVP 4 mg Q6HR PRN Administration Nausea / Vomiting Pantoprazole Sodium 40 mg 11/09/18 07:00 11/09/18 06:42 Protonix IVP 40 mg QDAC JACQUES Administration Prochlorperazine Edisylate 10 mg 11/08/18 11:58 11/08/18 23:13 Compazine Inj IVP 10 mg Q6HR PRN Administration Nausea / Vomiting Sodium Chloride 10 ml 11/09/18 09:00 11/09/18 08:40 Normal Saline Flush 0.9% IVP 20 ml 0100,0900,1700 JACQUES Administration - Lab Result Fish Bone Diagrams: 11/09/18 05:56 11/09/18 05:56 - Additional Planning My Orders: My Active Orders 11/08/18 11:00 Sepsis Onset Time [OTHERS] ONCE 11/08/18 11:58 IO [RC] Q1HR Initiate Bowel Care Protocol [RC] .protocol Initiate Personal Care Protoco [RC] .protocol Oxygen Therapy [RC] Routine Ondansetron Inj [Zofran Inj] 4 mg IVP Q6HR PRN Prochlorperazine Inj [Compazine Inj] 10 mg IVP Q6HR PRN Code Status [OTHERS] Routine Condition of Patient [OTHERS] Routine DVT Prophylaxis [OTHERS] Routine 11/08/18 12:01 SCDs [RC] QSHIFT 11/08/18 12:06 Vital Signs [RC] Q1HR 11/08/18 12:07 Straight Catheter Insertion [RC] PRN 11/08/18 12:13 CULTURE, BLOOD #2 [RM] Stat 11/08/18 12:25 CULTURE, BLOOD #1 [RM] Stat 11/08/18 19:07 NPO [DIET] 11/10/18 05:00 BMP - BASIC METABOLIC PANEL [CHEM] DAILYLAB CBC - COMP BLD CT W/AUTO DIFF [HEME] DAILYLAB CRP - C-REACTIVE PROTEIN [CHEM] DAILYLAB 11/11/18 05:00 BMP - BASIC METABOLIC PANEL [CHEM] DAILYLAB CBC - COMP BLD CT W/AUTO DIFF [HEME] DAILYLAB 11/12/18 05:00 BMP - BASIC METABOLIC PANEL [CHEM] DAILYLAB CBC - COMP BLD CT W/AUTO DIFF [HEME] DAILYLAB Subjective - Subjective Patient Reports: Feeling Better, Resting Comfortably Objective Vital Signs: Vital Signs - 24 hr 11/08/18 11/08/18 11/08/18 09:30 12:11 12:52 Temperature 36.3 C L Heart Rate 70 68 68 Heart Rate [ Brachial] Respiratory 14 20 14 Rate Blood Pressure 180/85 H 188/94 H 188/94 H Blood Pressure [Left Brachial artery] Blood Pressure [Right Brachial artery] O2 Saturation 99 100 99 11/08/18 11/08/18 11/08/18 13:21 14:44 17:00 Temperature 36.6 C 36.4 C L Heart Rate Heart Rate [ 75 79 90 Brachial] Respiratory 16 18 16 Rate Blood Pressure Blood Pressure 189/107 H [Left Brachial artery] Blood Pressure 185/74 H 170/100 H 171/100 H [Right Brachial artery] O2 Saturation 100 94 98 11/08/18 11/08/18 11/08/18 18:51 21:00 22:51 Temperature 37.1 C 36.2 C L 36.8 C Heart Rate Heart Rate [ 86 81 96 Brachial] Respiratory 18 18 18 Rate Blood Pressure Blood Pressure [Left Brachial artery] Blood Pressure 161/89 H 163/80 H 147/88 H [Right Brachial artery] O2 Saturation 95 98 96 11/08/18 11/09/18 11/09/18 23:23 00:15 00:30 Temperature 36.6 C 36.4 C L 36.5 C Heart Rate Heart Rate [ 98 92 101 H Brachial] Respiratory 16 16 16 Rate Blood Pressure Blood Pressure 133/78 H 148/86 H [Left Brachial artery] Blood Pressure 130/82 H [Right Brachial artery] O2 Saturation 93 94 94 11/09/18 11/09/18 11/09/18 01:30 02:00 03:34 Temperature 36.7 C Heart Rate 96 Heart Rate [ 103 H 93 Brachial] Respiratory 16 16 16 Rate Blood Pressure 137/85 H Blood Pressure 132/83 H 124/74 [Left Brachial artery] Blood Pressure [Right Brachial artery] O2 Saturation 98 95 100 11/09/18 11/09/18 11/09/18 03:39 03:44 03:49 Temperature 37.1 C 37.1 C 37.1 C Heart Rate 78 77 81 Heart Rate [ Brachial] Respiratory 16 14 12 Rate Blood Pressure 140/81 H 132/75 H 133/73 H Blood Pressure [Left Brachial artery] Blood Pressure [Right Brachial artery] O2 Saturation 100 100 100 11/09/18 11/09/18 11/09/18 03:54 04:07 04:15 Temperature 37.2 C 37.8 C H Heart Rate 78 Heart Rate [ 82 83 Brachial] Respiratory 16 12 12 Rate Blood Pressure 136/78 H Blood Pressure [Left Brachial artery] Blood Pressure 133/80 H 130/75 [Right Brachial artery] O2 Saturation 100 96 96 11/09/18 11/09/18 11/09/18 04:30 04:45 05:00 Temperature Heart Rate Heart Rate [ 84 84 86 Brachial] Respiratory 14 15 20 Rate Blood Pressure Blood Pressure [Left Brachial artery] Blood Pressure 127/79 128/79 126/77 [Right Brachial artery] O2 Saturation 96 96 96 11/09/18 11/09/18 11/09/18 05:15 06:00 07:00 Temperature 37.5 C Heart Rate Heart Rate [ 91 90 87 Brachial] Respiratory 11 L 10 L 11 L Rate Blood Pressure Blood Pressure [Left Brachial artery] Blood Pressure 129/77 113/73 117/71 [Right Brachial artery] O2 Saturation 98 97 96 11/09/18 11/09/18 08:00 09:00 Temperature 38.1 C H Heart Rate Heart Rate [ 84 86 Brachial] Respiratory 18 16 Rate Blood Pressure Blood Pressure [Left Brachial artery] Blood Pressure 111/93 H 124/76 [Right Brachial artery] O2 Saturation 97 97 Oxygen O2 Source Nasal cannula I&O (Last 24 Hrs): Intake and Output Totals x24h 11/07/18 11/08/18 11/09/18 23:59 23:59 23:59 Intake Total 3500.000 1316.250 Output Total 235 Balance 3500.000 1081.250 General: Alert, Oriented x3 HEENT: Other (Has ng tube) Neck: Supple, No JVD Neuro: Non Focal Cardiovascular: Regular rate, No murmurs Respiratory: No respiratory distress, Breath sounds nml Abdomen: Soft, No tenderness, Other (No bowel sounds) Extremities: No edema - Results Results: Laboratory Results WBC 14.5 x10^3/uL (4.8-10.8) H 11/09/18 05:56 RBC 4.10 10^6/uL (4.20-5.40) L 11/09/18 05:56 Hgb 12.3 g/dL (12.0-16.0) 11/09/18 05:56 Hct 38.1 % (37.0-47.0) 11/09/18 05:56 MCV 93.0 fL (81.0-99.0) 11/09/18 05:56 MCH 30.0 pg (27.0-31.0) 11/09/18 05:56 MCHC 32.2 g/dL (32.0-36.0) 11/09/18 05:56 RDW 14.2 % (12.0-15.0) 11/09/18 05:56 Plt Count 247 10^3/uL (130-450) 11/09/18 05:56 MPV 8.2 fL (7.9-10.8) 11/09/18 05:56 Neut # (Auto) 12.5 10^3/uL (1.5-6.6) H 11/09/18 05:56 Lymph # (Auto) 1.1 10^3/uL (1.5-3.5) L 11/09/18 05:56 [place] # (Auto) 0.8 10^3/uL (0.0-1.0) 11/09/18 05:56 Eos # (Auto) 0.0 10^3/uL (0.0-0.7) 11/09/18 05:56 Baso # (Auto) 0.0 10^3/uL (0.0-0.1) 11/09/18 05:56 Absolute Nucleated RBC 0.01 x10^3/uL 11/09/18 05:56 Total Counted 100 11/08/18 22:48 Band Neuts % (Manual) 7 % (0-10) 11/08/18 22:48 Abnorm Lymph % (Manual) 0 % 11/08/18 22:48 Nucleated RBC % 0.1 /100WBC 11/09/18 05:56 Neutrophils # (Manual) 19.4 10^3/uL (1.5-6.6) H 11/08/18 22:48 Lymphocytes # (Manual) 0.6 10^3/uL (1.5-3.5) L 11/08/18 22:48 Monocytes # (Manual) 0.2 10^3/uL (0.0-1.0) 11/08/18 22:48 Eosinophils # (Manual) 0.0 10^3/uL (0-0.7) 11/08/18 22:48 Basophils # (Manual) 0.0 10^3/uL (0-0.1) 11/08/18 22:48 Differential Comment MANUAL DIFFERENTIAL 11/08/18 22:48 Manual Slide Review Indicated 11/08/18 22:48 Platelet Estimate NORMAL (130-450,000) (NORMAL) 11/08/18 22:48 RBC Morph Micro Appear NORMAL APPEARANCE (NORMAL) 11/08/18 22:48 Sodium 136 mmol/L (135-145) 11/09/18 05:56 Potassium 3.8 mmol/L (3.5-5.0) 11/09/18 05:56 Chloride 106 mmol/L (101-111) 11/09/18 05:56 Carbon Dioxide 22 mmol/L (21-32) 11/09/18 05:56 Anion Gap 8.0 (6-13) 11/09/18 05:56 BUN 26 mg/dL (6-20) H 11/09/18 05:56 Creatinine 0.6 mg/dL (0.4-1.0) 11/09/18 05:56 Estimated GFR (MDRD) 103 (>89) 11/09/18 05:56 Glucose 149 mg/dL (70-100) H 11/09/18 05:56 Lactic Acid 2.4 mmol/L (0.5-2.2) H 11/09/18 05:56 Calcium 8.5 mg/dL (8.5-10.3) 11/09/18 05:56 Magnesium 2.1 mg/dL (1.7-2.8) 11/08/18 07:55 Total Bilirubin 0.9 mg/dL (0.2-1.0) 11/08/18 22:48 AST 38 IU/L (10-42) 11/08/18 22:48 ALT 25 IU/L (10-60) 11/08/18 22:48 Alkaline Phosphatase 69 IU/L (42-121) 11/08/18 22:48 C-Reactive Protein 3.7 mg/dL (0-1.0) H 11/09/18 05:56 Total Protein 7.1 g/dL (6.7-8.2) 11/08/18 22:48 Albumin 3.9 g/dL (3.2-5.5) 11/08/18 22:48 Globulin 3.2 g/dL (2.1-4.2) 11/08/18 22:48 Albumin/Globulin Ratio 1.2 (1.0-2.2) 11/08/18 22:48 Lipase 26 U/L (22-51) 11/08/18 07:55 Carcinoembryonic Ag 2.0 ng/mL 11/08/18 07:35 Urine Color YELLOW 11/08/18 08:40 Urine Clarity CLEAR (CLEAR) 11/08/18 08:40 Urine pH 8.0 PH (5.0-7.5) H 11/08/18 08:40 Ur Specific Ceres 1.020 (1.002-1.030) 11/08/18 08:40 Urine Protein TRACE mg/dL (NEGATIVE) 11/08/18 08:40 Urine Glucose (UA) 100 mg/dL (NEGATIVE) H 11/08/18 08:40 Urine Ketones TRACE mg/dL (NEGATIVE) 11/08/18 08:40 Urine Occult Blood MODERATE (NEGATIVE) H 11/08/18 08:40 Urine Nitrite NEGATIVE (NEGATIVE) 11/08/18 08:40 Urine Bilirubin NEGATIVE (NEGATIVE) 11/08/18 08:40 Urine Urobilinogen 0.2 (NORMAL) E.U./dL (NORMAL) 11/08/18 08:40 Ur Leukocyte Esterase NEGATIVE (NEGATIVE) 11/08/18 08:40 Urine RBC 6-10 /HPF (0-5) H 11/08/18 08:40 Urine WBC 0-3 /HPF (0-5) 11/08/18 08:40 Ur Squamous Epith Cells RARE Squamous (<= Few) 11/08/18 08:40 Amorphous Sediment Few /LPF 11/08/18 08:40 Urine Bacteria Rare /HPF (None Seen) 11/08/18 08:40 Ur Microscopic Review INDICATED 11/08/18 08:40 Urine Culture Comments NOT INDICATED 11/08/18 08:40 MRSA Surveill Initial NEGATIVE (NEGATIVE) 11/09/18 00:45 Blood Type O POSITIVE 11/09/18 01:38 Blood Type Recheck O POSITIVE 11/09/18 00:05 Antibody Screen NEGATIVE 11/09/18 01:38
--- NOTE | 2018-11-09 14:37 | PROVIDER PROGRESS NOTE ---
Subjective - General Admit Date: 11/08/18 Procedure Date: 11/09/18 Post Op Days: 1 Procedure Performed: Exploratory laparotomy with resection of necrotic ileum (13 inches) and ile - Review of Systems Wound/Incisions: positive: Dressing dry and intact General: positive: No symptoms HEENT: positive: No symptoms Pulmonary: positive: No symptoms Cardiovascular: positive: No symptoms Gastrointestinal: positive: No symptoms, Abdominal pain (Decreased and mostly incisional.) Genitourinary: positive: No symptoms (Parsons in place.) Musculoskeletal: positive: No symptoms Skin: positive: No symptoms All Other Systems: positive: Reviewed and negative Objective - Patient Data Reviewed Vital Signs: Yes Vital Signs: Vital Signs x48h Temp Pulse Resp BP Pulse Ox 11/09/18 14:00 100 12 129/80 97 11/09/18 13:00 98 17 132/83 H 97 11/09/18 12:00 87 15 119/70 99 11/09/18 11:00 94 17 134/85 H 98 11/09/18 10:00 88 13 128/79 97 11/09/18 09:00 86 16 124/76 97 11/09/18 08:00 38.1 C H 84 18 111/93 H 97 11/09/18 07:00 87 11 L 117/71 96 Weight: Weight 11/07/18 11/08/18 11/09/18 23:59 23:59 23:59 Weight (kg) 64.5 kg Intake & Output: Intake and Output Totals x24h 11/07/18 11/08/18 11/09/18 23:59 23:59 23:59 Intake Total 3500.000 2460.000 Output Total 850 Balance 3500.000 1610.000 - Lab Results Lab Results: 11/09/18 05:56 11/09/18 05:56 Other Lab Results: Lab Results x24hrs 11/09/18 11/09/18 11/09/18 Range/Units 09:28 05:56 05:56 WBC (4.8-10.8) x10^3/uL RBC (4.20-5.40) 10^6/uL Hgb (12.0-16.0) g/dL Hct (37.0-47.0) % MCV (81.0-99.0) fL MCH (27.0-31.0) pg MCHC (32.0-36.0) g/dL RDW (12.0-15.0) % Plt Count (130-450) 10^3/uL MPV (7.9-10.8) fL Neut # (Auto) Lymph # (Auto) Hart # (Auto) Eos # (Auto) Baso # (Auto) Absolute Nucleated RBC Total Counted Band Neuts % (Manual) (0 - 10) % Abnorm Lymph % (Manual) % Nucleated RBC % Neutrophils # (Manual) (1.5-6.6) 10^3/uL Lymphocytes # (Manual) (1.5-3.5) 10^3/uL Monocytes # (Manual) (0.0-1.0) 10^3/uL Eosinophils # (Manual) (0-0.7) 10^3/uL Basophils # (Manual) (0-0.1) 10^3/uL Differential Comment Manual Slide Review Platelet Estimate (NORMAL) RBC Morph Micro Appear (NORMAL) Sodium 136 (135-145) mmol/L Potassium 3.8 (3.5-5.0) mmol/L Chloride 106 (101-111) mmol/L Carbon Dioxide 22 (21-32) mmol/L Anion Gap 8.0 (6-13) BUN 26 H (6-20) mg/dL Creatinine 0.6 (0.4-1.0) mg/dL Estimated GFR (MDRD) 103 (>89) Glucose 149 H (70-100) mg/dL Lactic Acid 1.5 2.4 H (0.5-2.2) mmol/L Calcium 8.5 (8.5-10.3) mg/dL Total Bilirubin (0.2-1.0) mg/dL AST (10-42) IU/L ALT (10-60) IU/L Alkaline Phosphatase (42-121) IU/L C-Reactive Protein 3.7 H (0-1.0) mg/dL Total Protein (6.7-8.2) g/dL Albumin (3.2-5.5) g/dL Globulin (2.1-4.2) g/dL Albumin/Globulin Ratio (1.0-2.2) Carcinoembryonic Ag ng/mL MRSA Surveill Initial (NEGATIVE) Blood Type Blood Type Recheck Antibody Screen 11/09/18 11/09/18 11/09/18 Range/Units 05:56 01:38 00:45 WBC 14.5 H (4.8-10.8) x10^3/uL RBC 4.10 L (4.20-5.40) 10^6/uL Hgb 12.3 (12.0-16.0) g/dL Hct 38.1 (37.0-47.0) % MCV 93.0 (81.0-99.0) fL MCH 30.0 (27.0-31.0) pg MCHC 32.2 (32.0-36.0) g/dL RDW 14.2 (12.0-15.0) % Plt Count 247 (130-450) 10^3/uL MPV 8.2 (7.9-10.8) fL Neut # (Auto) 12.5 H Lymph # (Auto) 1.1 L Hart # (Auto) 0.8 Eos # (Auto) 0.0 Baso # (Auto) 0.0 Absolute Nucleated RBC 0.01 Total Counted Band Neuts % (Manual) (0 - 10) % Abnorm Lymph % (Manual) % Nucleated RBC % 0.1 Neutrophils # (Manual) (1.5-6.6) 10^3/uL Lymphocytes # (Manual) (1.5-3.5) 10^3/uL Monocytes # (Manual) (0.0-1.0) 10^3/uL Eosinophils # (Manual) (0-0.7) 10^3/uL Basophils # (Manual) (0-0.1) 10^3/uL Differential Comment Manual Slide Review Platelet Estimate (NORMAL) RBC Morph Micro Appear (NORMAL) Sodium (135-145) mmol/L Potassium (3.5-5.0) mmol/L Chloride (101-111) mmol/L Carbon Dioxide (21-32) mmol/L Anion Gap (6-13) BUN (6-20) mg/dL Creatinine (0.4-1.0) mg/dL Estimated GFR (MDRD) (>89) Glucose (70-100) mg/dL Lactic Acid (0.5-2.2) mmol/L Calcium (8.5-10.3) mg/dL Total Bilirubin (0.2-1.0) mg/dL AST (10-42) IU/L ALT (10-60) IU/L Alkaline Phosphatase (42-121) IU/L C-Reactive Protein (0-1.0) mg/dL Total Protein (6.7-8.2) g/dL Albumin (3.2-5.5) g/dL Globulin (2.1-4.2) g/dL Albumin/Globulin Ratio (1.0-2.2) Carcinoembryonic Ag ng/mL MRSA Surveill Initial NEGATIVE (NEGATIVE) Blood Type O POSITIVE Blood Type Recheck Antibody Screen NEGATIVE 11/09/18 11/09/18 11/08/18 Range/Units 00:05 00:05 22:48 WBC (4.8-10.8) x10^3/uL RBC (4.20-5.40) 10^6/uL Hgb (12.0-16.0) g/dL Hct (37.0-47.0) % MCV (81.0-99.0) fL MCH (27.0-31.0) pg MCHC (32.0-36.0) g/dL RDW (12.0-15.0) % Plt Count (130-450) 10^3/uL MPV (7.9-10.8) fL Neut # (Auto) Lymph # (Auto) Hart # (Auto) Eos # (Auto) Baso # (Auto) Absolute Nucleated RBC Total Counted Band Neuts % (Manual) (0 - 10) % Abnorm Lymph % (Manual) % Nucleated RBC % Neutrophils # (Manual) (1.5-6.6) 10^3/uL Lymphocytes # (Manual) (1.5-3.5) 10^3/uL Monocytes # (Manual) (0.0-1.0) 10^3/uL Eosinophils # (Manual) (0-0.7) 10^3/uL Basophils # (Manual) (0-0.1) 10^3/uL Differential Comment Manual Slide Review Platelet Estimate (NORMAL) RBC Morph Micro Appear (NORMAL) Sodium 134 L (135-145) mmol/L Potassium 4.0 (3.5-5.0) mmol/L Chloride 102 (101-111) mmol/L Carbon Dioxide 20 L (21-32) mmol/L Anion Gap 12.0 (6-13) BUN 18 (6-20) mg/dL Creatinine 0.6 (0.4-1.0) mg/dL Estimated GFR (MDRD) 103 (>89) Glucose 173 H (70-100) mg/dL Lactic Acid 5.3 H* (0.5-2.2) mmol/L Calcium 9.1 (8.5-10.3) mg/dL Total Bilirubin 0.9 (0.2-1.0) mg/dL AST 38 (10-42) IU/L ALT 25 (10-60) IU/L Alkaline Phosphatase 69 (42-121) IU/L C-Reactive Protein (0-1.0) mg/dL Total Protein 7.1 (6.7-8.2) g/dL Albumin 3.9 (3.2-5.5) g/dL Globulin 3.2 (2.1-4.2) g/dL Albumin/Globulin Ratio 1.2 (1.0-2.2) Carcinoembryonic Ag ng/mL MRSA Surveill Initial (NEGATIVE) Blood Type Blood Type Recheck O POSITIVE Antibody Screen 11/08/18 11/08/18 11/08/18 Range/Units 22:48 21:20 17:35 WBC 20.2 H (4.8-10.8) x10^3/uL RBC 4.64 (4.20-5.40) 10^6/uL Hgb 14.2 (12.0-16.0) g/dL Hct 42.8 (37.0-47.0) % MCV 92.1 (81.0-99.0) fL MCH 30.6 (27.0-31.0) pg MCHC 33.2 (32.0-36.0) g/dL RDW 14.7 (12.0-15.0) % Plt Count 290 (130-450) 10^3/uL MPV 7.9 (7.9-10.8) fL Neut # (Auto) Not Reportable Lymph # (Auto) Not Reportable Hart # (Auto) Not Reportable Eos # (Auto) Not Reportable Baso # (Auto) Not Reportable Absolute Nucleated RBC Not Reportable Total Counted 100 Band Neuts % (Manual) 7 (0 - 10) % Abnorm Lymph % (Manual) 0 % Nucleated RBC % Not Reportable Neutrophils # (Manual) 19.4 H (1.5-6.6) 10^3/uL Lymphocytes # (Manual) 0.6 L (1.5-3.5) 10^3/uL Monocytes # (Manual) 0.2 (0.0-1.0) 10^3/uL Eosinophils # (Manual) 0.0 (0-0.7) 10^3/uL Basophils # (Manual) 0.0 (0-0.1) 10^3/uL Differential Comment MANUAL DIFFERENTIAL Manual Slide Review Indicated Platelet Estimate NORMAL (130-450,000) (NORMAL) RBC Morph Micro Appear NORMAL APPEARANCE (NORMAL) Sodium (135-145) mmol/L Potassium (3.5-5.0) mmol/L Chloride (101-111) mmol/L Carbon Dioxide (21-32) mmol/L Anion Gap (6-13) BUN (6-20) mg/dL Creatinine (0.4-1.0) mg/dL Estimated GFR (MDRD) (>89) Glucose (70-100) mg/dL Lactic Acid 6.5 H* 5.0 H* (0.5-2.2) mmol/L Calcium (8.5-10.3) mg/dL Total Bilirubin (0.2-1.0) mg/dL AST (10-42) IU/L ALT (10-60) IU/L Alkaline Phosphatase (42-121) IU/L C-Reactive Protein (0-1.0) mg/dL Total Protein (6.7-8.2) g/dL Albumin (3.2-5.5) g/dL Globulin (2.1-4.2) g/dL Albumin/Globulin Ratio (1.0-2.2) Carcinoembryonic Ag ng/mL MRSA Surveill Initial (NEGATIVE) Blood Type Blood Type Recheck Antibody Screen 11/08/18 11/08/18 Range/Units 14:30 07:35 WBC (4.8-10.8) x10^3/uL RBC (4.20-5.40) 10^6/uL Hgb (12.0-16.0) g/dL Hct (37.0-47.0) % MCV (81.0-99.0) fL MCH (27.0-31.0) pg MCHC (32.0-36.0) g/dL RDW (12.0-15.0) % Plt Count (130-450) 10^3/uL MPV (7.9-10.8) fL Neut # (Auto) Lymph # (Auto) Hart # (Auto) Eos # (Auto) Baso # (Auto) Absolute Nucleated RBC Total Counted Band Neuts % (Manual) (0 - 10) % Abnorm Lymph % (Manual) % Nucleated RBC % Neutrophils # (Manual) (1.5-6.6) 10^3/uL Lymphocytes # (Manual) (1.5-3.5) 10^3/uL Monocytes # (Manual) (0.0-1.0) 10^3/uL Eosinophils # (Manual) (0-0.7) 10^3/uL Basophils # (Manual) (0-0.1) 10^3/uL Differential Comment Manual Slide Review Platelet Estimate (NORMAL) RBC Morph Micro Appear (NORMAL) Sodium (135-145) mmol/L Potassium (3.5-5.0) mmol/L Chloride (101-111) mmol/L Carbon Dioxide (21-32) mmol/L Anion Gap (6-13) BUN (6-20) mg/dL Creatinine (0.4-1.0) mg/dL Estimated GFR (MDRD) (>89) Glucose (70-100) mg/dL Lactic Acid 2.7 H (0.5-2.2) mmol/L Calcium (8.5-10.3) mg/dL Total Bilirubin (0.2-1.0) mg/dL AST (10-42) IU/L ALT (10-60) IU/L Alkaline Phosphatase (42-121) IU/L C-Reactive Protein (0-1.0) mg/dL Total Protein (6.7-8.2) g/dL Albumin (3.2-5.5) g/dL Globulin (2.1-4.2) g/dL Albumin/Globulin Ratio (1.0-2.2) Carcinoembryonic Ag 2.0 ng/mL MRSA Surveill Initial (NEGATIVE) Blood Type Blood Type Recheck Antibody Screen - Current Medications Current Medications: Current Medications Generic Name Dose Route Start Last Admin Trade Name Freq PRN Reason Stop Dose Admin Enoxaparin Sodium 40 mg 11/09/18 09:00 11/09/18 08:39 Lovenox SUBQ 40 mg DAILY JACQUES Administration Hydromorphone HCl 1 mg 11/08/18 13:45 11/09/18 13:00 Dilaudid Inj Syringe IVP 1 mg Q2H PRN Administration Pain 8 to 10 Potassium Chloride/Dextrose/Sod Cl 1,000 mls @ 125 mls/hr 11/09/18 04:00 11/09/18 14:33 IV 125 mls/hr .Q8H JACQUES Administration Acetaminophen 100 mls @ 400 mls/hr 11/09/18 04:00 11/09/18 11:17 Ofirmev IV Infused Q6H JACQUES Infusion Piperacillin Sod/Tazobactam 100 mls @ 200 mls/hr 11/09/18 06:00 11/09/18 13:13 Sod 3.375 gm/ Sodium Chloride IV 11/14/18 05:59 200 mls/hr Q6HR JACQUSE Administration Ondansetron HCl 4 mg 11/08/18 11:58 11/09/18 04:51 Zofran Inj IVP 4 mg Q6HR PRN Administration Nausea / Vomiting Pantoprazole Sodium 40 mg 11/09/18 07:00 11/09/18 06:42 Protonix IVP 40 mg QDAC JACQUES Administration Prochlorperazine Edisylate 10 mg 11/08/18 11:58 11/08/18 23:13 Compazine Inj IVP 10 mg Q6HR PRN Administration Nausea / Vomiting Sodium Chloride 10 ml 11/09/18 09:00 11/09/18 08:40 Normal Saline Flush 0.9% IVP 20 ml 0100,0900,1700 JACQUES Administration - Physical Exam Wound/Incisions: positive: Dressing dry and intact General Appearance: positive: No acute distress (Markedly improved - not somnolent at all.) Eyes Bilateral: positive: No lid inflammation, Conjunctivae nml, No scleral icterus ENT: positive: Dry mucous membranes Neck: positive: Trachea midline Respiratory: positive: Chest non-tender, No respiratory distress, Breath sounds nml Cardiovascular: positive: Regular rate & rhythm, No murmur, No gallop Abdomen: positive: No distention, Tenderness (Incisional.), Abnml bowel sounds (Quiet.) Skin: positive: Color nml Extremities: positive: Non-tender, Nml appearance Neurologic/Psychiatric: positive: Oriented x3, Motor nml, Sensation nml, Mood/affect nml ABX Reporting Has patient been on IV antibiotics over the past 48 hours?: Yes Impression/Plan - Problem List Problem List: D0 s/p exploratory laparotomy with resection of necrotic 13 inches of ileum due to closed loop obstruction with ileoileostomy 1) FEN Continue IVF at 125 mL/hour and start clears with NG in for comfort. 2) Activity Ambulate in halls TID and preferably more. 3) Parsons Out. 4) ID Lactic acid markedly improved. No evidence of sepsis but due to operative findings and dusky distal bowel would keep her on antibiotics. I expect that the blood cultures will come back negative. Again, this is due to the fact that the patient had bowel not an infection. 30 minutes of [id number] time was spent with the patient, almost all in explanation and discussion, coordination of their care and completion of the requisite paperwork Dragon disclaimer: This document was created in part using voice recognition technology. Because of the inherent limitations of the system ([employer]'s [employer] user manual states that the licensee understands that speech recognition is a statistical process and that recognition errors are inherent in the process), occasional same sounding word substitutions and grammatical errors do occur and persist despite proofreading. Please read this document for context.
[2018-11-10] MEDS: HYDROmorphone 0.5 MG/0.5 ML SYRINGE IVP PRN ×5 (00:30→14:51)
[2018-11-10] MEDS: ACETAMINOPHEN 1,000 MG/100 ML 100 ML IV SCH ×4 (04:08→22:06)
[2018-11-10] MEDS: SODIUM CHLORIDE FLUSH 0.9% 10 ML SYRINGE IVP SCH ×3 (04:29→16:42)
[2018-11-10 05:49] LABS: BASOPHILS % (AUTO) 0.4 %; EOSINOPHILS % (AUTO) 0.2 %; HGB - HEMOGLOBIN 9.4 g/dL (12.0-16.0); LYMPHOCYTES # (AUTO) 2.5 10^3/uL (1.5-3.5); LYMPHOCYTES % (AUTO) 21.9 %; MEAN CORPUSCULAR HEMOGLOBIN 30.2 pg (27.0-31.0); MEAN CORPUSCULAR HGB CONC 32.5 g/dL (32.0-36.0); MEAN PLATELET VOLUME 8.4 fL (7.9-10.8); MONOCYTES # (AUTO) 0.8 10^3/uL (0.0-1.0); MONOCYTES % (AUTO) 6.5 %; NEUTROPHILS # (AUTO) 8.3 10^3/uL (1.5-6.6); PLT - PLATELET COUNT 171 10^3/uL (130-450); RED BLOOD COUNT 3.12 10^6/uL (4.20-5.40); RED CELL DISTRIBUTION WIDTH 14.6 % (12.0-15.0); WHITE BLOOD COUNT 11.6 x10^3/uL (4.8-10.8)
[2018-11-10 06:03] LABS: CALCIUM 8.1 mg/dL (8.5-10.3); CREATININE 0.5 mg/dL (0.4-1.0); CRP - C-REACTIVE PROTEIN 11.2 mg/dL (0-1.0)
[2018-11-10] MEDS: PIPERACILLIN/TAZOBACTAM 3.375 GM in SODIUM CHLORIDE 0.9% MINIBAG 100 ML IV SCH ×3 (06:19→19:07)
[2018-11-10] MEDS: PANTOPRAZOLE 40 MG VIAL IVP SCH (06:19)
[2018-11-10] MEDS: SODIUM CHLORIDE FLUSH 0.9% 10 ML SYRINGE IVP PRN ×2 (06:21→19:07)
--- NOTE | 2018-11-10 06:48 | CT Report ---
Reason: abdominal pain Procedure Date: 11/09/2018 Accession Number: [id number] / [id number] Procedure: CT - Abdomen/Pelvis W/O CPT Code: FULL RESULT: EXAM: CT ABDOMEN AND PELVIS EXAM DATE: 11/09/2018 12:23 AM. CLINICAL HISTORY: Abdominal pain. COMPARISONS: ABDOMEN/PELVIS ANGIO 11/08/2018 8:43 PM. TECHNIQUE: Routine helical CT imaging was performed through the abdomen and pelvis. IV contrast: None. Enteric contrast: Yes. Reconstructions: Coronal and sagittal. In accordance with CT protocol optimization, one or more of the following dose reduction techniques were utilized for this exam: automated exposure control, adjustment of mA and/or KV based on patient size, or use of iterative reconstructive technique. FINDINGS: Lung Bases: Unremarkable. Liver: Normal. No masses. Gallbladder/Bile Ducts: Unremarkable. Spleen: Normal. Pancreas: Normal. Adrenal Glands: Normal. Kidneys: Contrast from previous scan and the collecting systems. Peritoneal Cavity/Bowel: Oral contrast is seen in the stomach and proximal small bowel, into the proximal jejunum. Distal dilated small bowel loops are not opacified. No significant interval change in small bowel dilatation pattern. No significant interval change in ascites. Pelvic Organs: Stable ascites in the pelvis. No evident adenopathy. Contrast in the urinary bladder from previous study. Vasculature: No aneurysms or other significant abnormality. Bones: Degenerative changes. Other: None. IMPRESSION: No significant interval change in small bowel obstruction pattern and ascites. Oral contrast is seen in the stomach, duodenum, and proximal jejunum. RADIA
[2018-11-10] MEDS: D5NS W/20 MEQ KCL 1,000 ML IV SCH ×3 (08:23→19:27)
[2018-11-10] MEDS: ENOXAPARIN 40 MG/0.4 ML SYRINGE SUBQ SCH (09:02)
--- NOTE | 2018-11-10 09:11 | PROVIDER PROGRESS NOTE ---
Assessment/Plan - Problem List (1) Ischemic necrosis of small bowel Assessment/Plan: POD #1 after exploratory lap and resection of necrotic ileum Continue management as per surgeon: continue iv fluids keep ng in but start clear liquids out of ICU Parsons out increase ambulation follow BMP (2) Sepsis Assessment/Plan: Lactic acid normalized yesterday. Continue empiric antibiotics since she had bowel, as per surgery recommendation Follow CBC - Current Meds Current Meds: Current Medications Generic Name Dose Route Start Last Admin Trade Name Freq PRN Reason Stop Dose Admin Enoxaparin Sodium 40 mg 11/09/18 09:00 11/10/18 09:02 Lovenox SUBQ 40 mg DAILY JACQUES Administration Hydromorphone HCl 1 mg 11/08/18 13:45 11/10/18 09:04 Dilaudid Inj Syringe IVP 1 mg Q2H PRN Administration Pain 8 to 10 Potassium Chloride/Dextrose/Sod Cl 1,000 mls @ 125 mls/hr 11/09/18 04:00 11/10/18 08:23 IV 125 mls/hr .Q8H JACQUES Administration Acetaminophen 100 mls @ 400 mls/hr 11/09/18 04:00 11/10/18 09:02 Ofirmev IV 400 mls/hr Q6H JACQUES Administration Piperacillin Sod/Tazobactam 100 mls @ 200 mls/hr 11/09/18 06:00 11/10/18 07:1 5 Sod 3.375 gm/ Sodium Chloride IV 11/14/18 05:59 Infused Q6HR JACQUES Infusion Ondansetron HCl 4 mg 11/08/18 11:58 11/09/18 04:51 Zofran Inj IVP 4 mg Q6HR PRN Administration Nausea / Vomiting Pantoprazole Sodium 40 mg 11/09/18 07:00 11/10/18 06:19 Protonix IVP 40 mg QDAC JACQUES Administration Prochlorperazine Edisylate 10 mg 11/08/18 11:58 11/08/18 23:13 Compazine Inj IVP 10 mg Q6HR PRN Administration Nausea / Vomiting Sodium Chloride 10 ml 11/09/18 09:00 11/10/18 09:05 Normal Saline Flush 0.9% IVP 10 ml 0100,0900,1700 JACQUES Administration Sodium Chloride 10 ml 11/09/18 03:24 11/10/18 06:21 Normal Saline Flush 0.9% IVP 10 ml PRN PRN Administration NEEDED PER PROVIDER ORDERS - Lab Result Fish Bone Diagrams: 11/10/18 12:58 11/10/18 04:53 - Additional Planning My Orders: My Active Orders 11/11/18 05:00 BMP - BASIC METABOLIC PANEL [CHEM] DAILYLAB CBC - COMP BLD CT W/AUTO DIFF [HEME] DAILYLAB 11/12/18 05:00 BMP - BASIC METABOLIC PANEL [CHEM] DAILYLAB CBC - COMP BLD CT W/AUTO DIFF [HEME] DAILYLAB Subjective - Subjective Patient Reports: Feeling Better, Other (No BM yet) Objective Vital Signs: Vital Signs - 24 hr 11/09/18 11/09/18 11/09/18 10:00 11:00 12:00 Temperature Heart Rate [ 88 94 87 Brachial] Respiratory 13 17 15 Rate Blood Pressure 128/79 134/85 H 119/70 [Right Brachial artery] O2 Saturation 97 98 99 11/09/18 11/09/18 11/09/18 13:00 14:00 15:00 Temperature Heart Rate [ 98 100 82 Brachial] Respiratory 17 12 18 Rate Blood Pressure 132/83 H 129/80 129/84 H [Right Brachial artery] O2 Saturation 97 97 95 11/09/18 11/09/18 11/09/18 16:00 17:00 19:23 Temperature 37.8 C H 36.8 C Heart Rate [ 74 87 89 Brachial] Respiratory 14 16 18 Rate Blood Pressure 137/74 H 149/80 H 147/81 H [Right Brachial artery] O2 Saturation 96 98 100 11/10/18 11/10/18 00:30 08:05 Temperature 36.9 C 37.0 C Heart Rate [ 91 92 Brachial] Respiratory 17 17 Rate Blood Pressure 144/90 H 150/87 H [Right Brachial artery] O2 Saturation 97 98 Oxygen O2 Source Room air I&O (Last 24 Hrs): Intake and Output Totals x24h 11/08/18 11/09/18 11/10/18 23:59 23:59 23:59 Intake Total 3500.000 4497.083 1179.166 Output Total 2862 1050 Balance 3500.000 1635.083 129.166 General: Alert, Oriented x3 HEENT: Mucous membr. moist/pink, Other (Has ng tube in) Neck: Supple, No JVD Neuro: Non Focal Cardiovascular: Regular rate, No murmurs Respiratory: No respiratory distress, Breath sounds nml Abdomen: Soft, Other (Only bowel sounds heard in RLQ) Extremities: No edema - Results Results: Laboratory Results WBC 11.6 x10^3/uL (4.8-10.8) H 11/10/18 04:53 RBC 3.12 10^6/uL (4.20-5.40) L 11/10/18 04:53 Hgb 9.4 g/dL (12.0-16.0) L 11/10/18 04:53 Hct 29.0 % (37.0-47.0) L 11/10/18 04:53 MCV 93.0 fL (81.0-99.0) 11/10/18 04:53 MCH 30.2 pg (27.0-31.0) 11/10/18 04:53 MCHC 32.5 g/dL (32.0-36.0) 11/10/18 04:53 RDW 14.6 % (12.0-15.0) 11/10/18 04:53 Plt Count 171 10^3/uL (130-450) 11/10/18 04:53 MPV 8.4 fL (7.9-10.8) 11/10/18 04:53 Neut # (Auto) 8.3 10^3/uL (1.5-6.6) H 11/10/18 04:53 Lymph # (Auto) 2.5 10^3/uL (1.5-3.5) 11/10/18 04:53 [place] # (Auto) 0.8 10^3/uL (0.0-1.0) 11/10/18 04:53 Eos # (Auto) 0.0 10^3/uL (0.0-0.7) 11/10/18 04:53 Baso # (Auto) 0.0 10^3/uL (0.0-0.1) 11/10/18 04:53 Absolute Nucleated RBC 0.02 x10^3/uL 11/10/18 04:53 Total Counted 100 11/08/18 22:48 Band Neuts % (Manual) 7 % (0-10) 11/08/18 22:48 Abnorm Lymph % (Manual) 0 % 11/08/18 22:48 Nucleated RBC % 0.2 /100WBC 11/10/18 04:53 Neutrophils # (Manual) 19.4 10^3/uL (1.5-6.6) H 11/08/18 22:48 Lymphocytes # (Manual) 0.6 10^3/uL (1.5-3.5) L 11/08/18 22:48 Monocytes # (Manual) 0.2 10^3/uL (0.0-1.0) 11/08/18 22:48 Eosinophils # (Manual) 0.0 10^3/uL (0-0.7) 11/08/18 22:48 Basophils # (Manual) 0.0 10^3/uL (0-0.1) 11/08/18 22:48 Differential Comment MANUAL DIFFERENTIAL 11/08/18 22:48 Manual Slide Review Indicated 11/08/18 22:48 Platelet Estimate NORMAL (130-450,000) (NORMAL) 11/08/18 22:48 RBC Morph Micro Appear NORMAL APPEARANCE (NORMAL) 11/08/18 22:48 Sodium 137 mmol/L (135-145) 11/10/18 04:53 Potassium 3.7 mmol/L (3.5-5.0) 11/10/18 04:53 Chloride 106 mmol/L (101-111) 11/10/18 04:53 Carbon Dioxide 26 mmol/L (21-32) 11/10/18 04:53 Anion Gap 5.0 (6-13) L 11/10/18 04:53 BUN 21 mg/dL (6-20) H 11/10/18 04:53 Creatinine 0.5 mg/dL (0.4-1.0) 11/10/18 04:53 Estimated GFR (MDRD) 127 (>89) 11/10/18 04:53 Glucose 109 mg/dL (70-100) H 11/10/18 04:53 Lactic Acid 1.5 mmol/L (0.5-2.2) 11/09/18 09:28 Calcium 8.1 mg/dL (8.5-10.3) L 11/10/18 04:53 Magnesium 2.1 mg/dL (1.7-2.8) 11/08/18 07:55 Total Bilirubin 0.9 mg/dL (0.2-1.0) 11/08/18 22:48 AST 38 IU/L (10-42) 11/08/18 22:48 ALT 25 IU/L (10-60) 11/08/18 22:48 Alkaline Phosphatase 69 IU/L (42-121) 11/08/18 22:48 C-Reactive Protein 11.2 mg/dL (0-1.0) H 11/10/18 04:53 Total Protein 7.1 g/dL (6.7-8.2) 11/08/18 22:48 Albumin 3.9 g/dL (3.2-5.5) 11/08/18 22:48 Globulin 3.2 g/dL (2.1-4.2) 11/08/18 22:48 Albumin/Globulin Ratio 1.2 (1.0-2.2) 11/08/18 22:48 Lipase 26 U/L (22-51) 11/08/18 07:55 Carcinoembryonic Ag 2.0 ng/mL 11/08/18 07:35 Urine Color YELLOW 11/08/18 08:40 Urine Clarity CLEAR (CLEAR) 11/08/18 08:40 Urine pH 8.0 PH (5.0-7.5) H 11/08/18 08:40 Ur Specific [place] 1.020 (1.002-1.030) 11/08/18 08:40 Urine Protein TRACE mg/dL (NEGATIVE) 11/08/18 08:40 Urine Glucose (UA) 100 mg/dL (NEGATIVE) H 11/08/18 08:40 Urine Ketones TRACE mg/dL (NEGATIVE) 11/08/18 08:40 Urine Occult Blood MODERATE (NEGATIVE) H 11/08/18 08:40 Urine Nitrite NEGATIVE (NEGATIVE) 11/08/18 08:40 Urine Bilirubin NEGATIVE (NEGATIVE) 11/08/18 08:40 Urine Urobilinogen 0.2 (NORMAL) E.U./dL (NORMAL) 11/08/18 08:40 Ur Leukocyte Esterase NEGATIVE (NEGATIVE) 11/08/18 08:40 Urine RBC 6-10 /HPF (0-5) H 11/08/18 08:40 Urine WBC 0-3 /HPF (0-5) 11/08/18 08:40 Ur Squamous Epith Cells RARE Squamous (<= Few) 11/08/18 08:40 Amorphous Sediment Few /LPF 11/08/18 08:40 Urine Bacteria Rare /HPF (None Seen) 11/08/18 08:40 Ur Microscopic Review INDICATED 11/08/18 08:40 Urine Culture Comments NOT INDICATED 11/08/18 08:40 MRSA Surveill Initial NEGATIVE (NEGATIVE) 11/09/18 00:45 Blood Type O POSITIVE 11/09/18 01:38 Blood Type Recheck O POSITIVE 11/09/18 00:05 Antibody Screen NEGATIVE 11/09/18 01:38
[2018-11-10 13:13] LABS: BASOPHILS % (AUTO) 0.3 %; EOSINOPHILS % (AUTO) 0.2 %; HGB - HEMOGLOBIN 9.7 g/dL (12.0-16.0); LYMPHOCYTES # (AUTO) 2.1 10^3/uL (1.5-3.5); LYMPHOCYTES % (AUTO) 19.6 %; MEAN CORPUSCULAR HEMOGLOBIN 31.2 pg (27.0-31.0); MEAN CORPUSCULAR HGB CONC 34.1 g/dL (32.0-36.0); MEAN CORPUSCULAR VOLUME 91.6 fL (81.0-99.0); MEAN PLATELET VOLUME 8.1 fL (7.9-10.8); MONOCYTES # (AUTO) 0.7 10^3/uL (0.0-1.0); NEUTROPHILS # (AUTO) 7.7 10^3/uL (1.5-6.6); NEUTROPHILS % (AUTO) 72.9 %; PLT - PLATELET COUNT 172 10^3/uL (130-450); RED BLOOD COUNT 3.12 10^6/uL (4.20-5.40); RED CELL DISTRIBUTION WIDTH 14.6 % (12.0-15.0); WHITE BLOOD COUNT 10.6 x10^3/uL (4.8-10.8)
--- NOTE | 2018-11-10 23:53 | PROVIDER PROGRESS NOTE ---
Subjective - General Admit Date: 11/08/18 Procedure Date: 11/09/18 Post Op Days: 1 Procedure Performed: Exploratory laparotomy with resection of necrotic ileum (13 inches) and ile - Review of Systems Wound/Incisions: positive: Dressing dry and intact General: positive: No symptoms HEENT: positive: No symptoms Pulmonary: positive: No symptoms Cardiovascular: positive: No symptoms Gastrointestinal: positive: No symptoms, Abdominal pain (Decreased and mostly incisional.) Genitourinary: positive: No symptoms (Parsons in place.) Musculoskeletal: positive: No symptoms Skin: positive: No symptoms All Other Systems: positive: Reviewed and negative Objective - Patient Data Reviewed Vital Signs: Yes Vital Signs: Vital Signs x48h Temp Pulse Resp BP Pulse Ox 11/10/18 23:35 37.1 C 83 18 144/75 H 98 11/10/18 19:20 37.4 C 88 18 131/87 H 100 Weight: Weight 11/08/18 11/09/18 11/10/18 23:59 23:59 23:59 Weight (kg) 64.5 kg Intake & Output: Intake and Output Totals x24h 11/08/18 11/09/18 11/10/18 23:59 23:59 23:59 Intake Total 3500.000 4497.083 4322.833 Output Total 2862 5725 Balance 3500.000 1635.083 -1402.167 - Lab Results Lab Results: 11/10/18 12:58 11/10/18 04:53 Other Lab Results: Lab Results x24hrs 11/10/18 11/10/18 11/10/18 Range/Units 12:58 04:53 04:53 WBC 10.6 11.6 H (4.8-10.8) x10^3/uL RBC 3.12 L 3.12 L (4.20-5.40) 10^6/uL Hgb 9.7 L 9.4 L (12.0-16.0) g/dL Hct 28.6 L 29.0 L (37.0-47.0) % MCV 91.6 93.0 (81.0-99.0) fL MCH 31.2 H 30.2 (27.0-31.0) pg MCHC 34.1 32.5 (32.0-36.0) g/dL RDW 14.6 14.6 (12.0-15.0) % Plt Count 172 171 (130-450) 10^3/uL MPV 8.1 8.4 (7.9-10.8) fL Neut # (Auto) 7.7 H 8.3 H (1.5-6.6) 10^3/uL Lymph # (Auto) 2.1 2.5 (1.5-3.5) 10^3/uL Lane # (Auto) 0.7 0.8 (0.0-1.0) 10^3/uL Eos # (Auto) 0.0 0.0 (0.0-0.7) 10^3/uL Baso # (Auto) 0.0 0.0 (0.0-0.1) 10^3/uL Absolute Nucleated RBC 0.01 0.02 x10^3/uL Nucleated RBC % 0.0 0.2 /100WBC Sodium 137 (135-145) mmol/L Potassium 3.7 (3.5-5.0) mmol/L Chloride 106 (101-111) mmol/L Carbon Dioxide 26 (21-32) mmol/L Anion Gap 5.0 L (6-13) BUN 21 H (6-20) mg/dL Creatinine 0.5 (0.4-1.0) mg/dL Estimated GFR (MDRD) 127 (>89) Glucose 109 H (70-100) mg/dL Calcium 8.1 L (8.5-10.3) mg/dL C-Reactive Protein 11.2 H (0-1.0) mg/dL - Current Medications Current Medications: Current Medications Generic Name Dose Route Start Last Admin Trade Name Freq PRN Reason Stop Dose Admin Enoxaparin Sodium 40 mg 11/09/18 09:00 11/10/18 09:02 Lovenox SUBQ 40 mg DAILY JACQUES Administration Hydromorphone HCl 1 mg 11/08/18 13:45 11/10/18 14:51 Dilaudid Inj Syringe IVP 1 mg Q2H PRN Administration Pain 8 to 10 Potassium Chloride/Dextrose/Sod Cl 1,000 mls @ 125 mls/hr 11/09/18 04:00 11/10/18 21:24 IV 125 mls/hr .Q8H JACQUES Infusion Acetaminophen 100 mls @ 400 mls/hr 11/09/18 04:00 11/10/18 22:22 Ofirmev IV Infused Q6H JACQUES Infusion Piperacillin Sod/Tazobactam 100 mls @ 200 mls/hr 11/09/18 06:00 11/10/18 19:37 Sod 3.375 gm/ Sodium Chloride IV 11/14/18 05:59 Infused Q6HR JACQUES Infusion Ondansetron HCl 4 mg 11/08/18 11:58 11/09/18 04:51 Zofran Inj IVP 4 mg Q6HR PRN Administration Nausea / Vomiting Pantoprazole Sodium 40 mg 11/09/18 07:00 11/10/18 06:19 Protonix IVP 40 mg QDAC JACQUES Administration Prochlorperazine Edisylate 10 mg 11/08/18 11:58 11/08/18 23:13 Compazine Inj IVP 10 mg Q6HR PRN Administration Nausea / Vomiting Sodium Chloride 10 ml 11/09/18 09:00 11/10/18 16:42 Normal Saline Flush 0.9% IVP 10 ml 0100,0900,1700 JACQUES Administration Sodium Chloride 10 ml 11/09/18 03:24 11/10/18 19:07 Normal Saline Flush 0.9% IVP 10 ml PRN PRN Administration NEEDED PER PROVIDER ORDERS - Physical Exam Wound/Incisions: positive: Dressing dry and intact General Appearance: positive: No acute distress Eyes Bilateral: positive: No lid inflammation, Conjunctivae nml, No scleral icterus ENT: positive: No signs of dehydration Neck: positive: Trachea midline Respiratory: positive: Chest non-tender, No respiratory distress, Breath sounds nml Cardiovascular: positive: Regular rate & rhythm Abdomen: positive: No distention, Tenderness (Incisional only.), Abnml bowel sounds (Decreased but present.) Skin: positive: Color nml Extremities: positive: Non-tender, Full ROM, Nml appearance Neurologic/Psychiatric: positive: Oriented x3, Motor nml, Sensation nml, Mood/affect nml ABX Reporting Has patient been on IV antibiotics over the past 48 hours?: Yes Impression/Plan - Problem List Problem List: D1 s/p exploratory laparotomy with resection of necrotic 13 inches of ileum due to closed loop obstruction with ileoileostomy 1) FEN Decrease IV fluids to 60 mL/hour, remove NG tube, and start full liquid diet. Patient feeling rumbling consistent with the likely start of bowel function. 2) Activity Ambulate in halls TID and preferably more. 3) ID Keep her on antibiotics. I expect that the blood cultures will come back negative. Again, this is due to the fact that the patient had bowel not an infection. Lactic acid and white blood cell count both markedly improved. Patient afebrile, non-tachycardic, nontachypneic. 30 minutes of [id number] time was spent with the patient, almost all in explanation and discussion, coordination of their care and completion of the requisite paperwork Dragon disclaimer: This document was created in part using voice recognition technology. Because of the inherent limitations of the system ([employer] user manual states that the licensee understands that speech recognition is a statistical process and that recognition errors are inherent in the process), occasional same sounding word substitutions and grammatical errors do occur and persist despite proofreading. Please read this document for context.
[2018-11-10] MEDS ORDERED: ACETAMINOPHEN 500 MG TABLET PO PRN (23:56)
[2018-11-11] MEDS: PIPERACILLIN/TAZOBACTAM 3.375 GM in SODIUM CHLORIDE 0.9% MINIBAG 100 ML IV SCH ×2 (00:13→06:01)
[2018-11-11] MEDS: D5NS W/20 MEQ KCL 1,000 ML IV SCH ×3 (00:21→22:31)
[2018-11-11] MEDS: HYDROmorphone 0.5 MG/0.5 ML SYRINGE IVP PRN (01:08)
[2018-11-11] MEDS: SODIUM CHLORIDE FLUSH 0.9% 10 ML SYRINGE IVP SCH ×3 (02:53→16:34)
[2018-11-11 05:01] LABS: CALCIUM 8.5 mg/dL (8.5-10.3); CREATININE 0.5 mg/dL (0.4-1.0)
[2018-11-11 05:04] LABS: BASOPHILS % (AUTO) 0.5 %; EOSINOPHILS # (AUTO) 0.1 10^3/uL (0.0-0.7); EOSINOPHILS % (AUTO) 1.1 %; HGB - HEMOGLOBIN 9.3 g/dL (12.0-16.0); LYMPHOCYTES # (AUTO) 2.5 10^3/uL (1.5-3.5); LYMPHOCYTES % (AUTO) 30.9 %; MEAN CORPUSCULAR HEMOGLOBIN 30.5 pg (27.0-31.0); MEAN CORPUSCULAR HGB CONC 32.7 g/dL (32.0-36.0); MEAN CORPUSCULAR VOLUME 93.5 fL (81.0-99.0); MEAN PLATELET VOLUME 8.1 fL (7.9-10.8); MONOCYTES # (AUTO) 0.6 10^3/uL (0.0-1.0); MONOCYTES % (AUTO) 7.2 %; NEUTROPHILS # (AUTO) 4.9 10^3/uL (1.5-6.6); NEUTROPHILS % (AUTO) 60.3 %; PLT - PLATELET COUNT 163 10^3/uL (130-450); RED BLOOD COUNT 3.04 10^6/uL (4.20-5.40); RED CELL DISTRIBUTION WIDTH 14.2 % (12.0-15.0); WHITE BLOOD COUNT 8.2 x10^3/uL (4.8-10.8)
[2018-11-11] MEDS: PANTOPRAZOLE 40 MG TABLET PO SCH (06:04)
[2018-11-11] MEDS ORDERED: guaiFENesin/CODEINE 5 ML UDC PO PRN (08:40)
[2018-11-11] MEDS ORDERED: BENZONATATE 100 MG CAPSULE PO PRN (08:41)
[2018-11-11] MEDS: POTASSIUM CHLORIDE 20 MEQ TABLET PO SCH (09:31)
[2018-11-11] MEDS: ENOXAPARIN 40 MG/0.4 ML SYRINGE SUBQ SCH (09:31)
[2018-11-11] MEDS ORDERED: HYDROmorphone 1 MG/ML CARPUJECT IVP PRN (10:21)
--- NOTE | 2018-11-11 11:18 | PROVIDER PROGRESS NOTE ---
Subjective - General Admit Date: 11/08/18 Procedure Date: 11/09/18 Post Op Days: 2 Procedure Performed: Exploratory laparotomy with resection of necrotic ileum (13 inches) and ile - Review of Systems Wound/Incisions: positive: Dressing dry and intact General: positive: No symptoms HEENT: positive: No symptoms Pulmonary: positive: No symptoms Cardiovascular: positive: No symptoms Gastrointestinal: positive: No symptoms, Abdominal pain (A little bit more today than yesterday.) Genitourinary: positive: No symptoms (Parsons in place.) Musculoskeletal: positive: No symptoms Skin: positive: No symptoms All Other Systems: positive: Reviewed and negative Objective - Patient Data Reviewed Vital Signs: Yes Vital Signs: Vital Signs x48h Temp Pulse Resp BP Pulse Ox 11/11/18 07:47 36.7 C 72 15 133/79 H 97 11/11/18 05:00 36.7 C 83 16 136/76 H 98 Intake & Output: Intake and Output Totals x24h 11/09/18 11/10/18 11/11/18 23:59 23:59 23:59 Intake Total 4497.083 4322.833 1721.333 Output Total 2862 5725 1600 Balance 1635.083 -1402.167 121.333 - Lab Results Lab Results: 11/11/18 04:33 11/11/18 04:33 Other Lab Results: Lab Results x24hrs 11/11/18 11/11/18 11/11/18 Range/Units 04:33 04:33 04:33 WBC 8.2 (4.8-10.8) x10^3/uL RBC 3.04 L (4.20-5.40) 10^6/uL Hgb 9.3 L (12.0-16.0) g/dL Hct 28.4 L (37.0-47.0) % MCV 93.5 (81.0-99.0) fL MCH 30.5 (27.0-31.0) pg MCHC 32.7 (32.0-36.0) g/dL RDW 14.2 (12.0-15.0) % Plt Count 163 (130-450) 10^3/uL MPV 8.1 (7.9-10.8) fL Neut # (Auto) 4.9 (1.5-6.6) 10^3/uL Lymph # (Auto) 2.5 (1.5-3.5) 10^3/uL [place] # (Auto) 0.6 (0.0-1.0) 10^3/uL Eos # (Auto) 0.1 (0.0-0.7) 10^3/uL Baso # (Auto) 0.0 (0.0-0.1) 10^3/uL Absolute Nucleated RBC 0.00 x10^3/uL Nucleated RBC % 0.0 /100WBC Sodium 137 (135-145) mmol/L Potassium 3.2 L (3.5-5.0) mmol/L Chloride 105 (101-111) mmol/L Carbon Dioxide 25 (21-32) mmol/L Anion Gap 7.0 (6-13) BUN 8 (6-20) mg/dL Creatinine 0.5 (0.4-1.0) mg/dL Estimated GFR (MDRD) 127 (>89) Glucose 103 H (70-100) mg/dL Calcium 8.5 (8.5-10.3) mg/dL Magnesium 2.2 (1.7-2.8) mg/dL 11/10/18 Range/Units 12:58 WBC 10.6 (4.8-10.8) x10^3/uL RBC 3.12 L (4.20-5.40) 10^6/uL Hgb 9.7 L (12.0-16.0) g/dL Hct 28.6 L (37.0-47.0) % MCV 91.6 (81.0-99.0) fL MCH 31.2 H (27.0-31.0) pg MCHC 34.1 (32.0-36.0) g/dL RDW 14.6 (12.0-15.0) % Plt Count 172 (130-450) 10^3/uL MPV 8.1 (7.9-10.8) fL Neut # (Auto) 7.7 H (1.5-6.6) 10^3/uL Lymph # (Auto) 2.1 (1.5-3.5) 10^3/uL [place] # (Auto) 0.7 (0.0-1.0) 10^3/uL Eos # (Auto) 0.0 (0.0-0.7) 10^3/uL Baso # (Auto) 0.0 (0.0-0.1) 10^3/uL Absolute Nucleated RBC 0.01 x10^3/uL Nucleated RBC % 0.0 /100WBC Sodium (135-145) mmol/L Potassium (3.5-5.0) mmol/L Chloride (101-111) mmol/L Carbon Dioxide (21-32) mmol/L Anion Gap (6-13) BUN (6-20) mg/dL Creatinine (0.4-1.0) mg/dL Estimated GFR (MDRD) (>89) Glucose (70-100) mg/dL Calcium (8.5-10.3) mg/dL Magnesium (1.7-2.8) mg/dL - Current Medications Current Medications: Current Medications Generic Name Dose Route Start Last Admin Trade Name Freq PRN Reason Stop Dose Admin Acetaminophen 500 mg 11/10/18 23:56 11/11/18 09:36 Tylenol PO 500 mg Q4HR PRN Administration Pain or Fever > 38C (100.4F) Enoxaparin Sodium 40 mg 11/09/18 09:00 11/11/18 09:31 Lovenox SUBQ 40 mg DAILY JACQUES Administration Piperacillin Sod/Tazobactam 100 mls @ 200 mls/hr 11/09/18 06:00 11/11/18 06:38 Sod 3.375 gm/ Sodium Chloride IV 11/14/18 05:59 Infused Q6HR JACQUES Infusion Potassium Chloride/Dextrose/Sod Cl 1,000 mls @ 60 mls/hr 11/10/18 23:55 11/11/18 06:58 IV 60 mls/hr .[id number] JACQUES Administration Ondansetron HCl 4 mg 11/08/18 11:58 11/09/18 04:51 Zofran Inj IVP 4 mg Q6HR PRN Administration Nausea / Vomiting Pantoprazole Sodium 40 mg 11/11/18 07:00 11/11/18 06:04 Protonix PO 40 mg QDAC JACQUES Administration Potassium Chloride 20 meq 11/11/18 10:00 11/11/18 09:31 K-Dur PO 20 meq DAILYWM JACQUES Administration Prochlorperazine Edisylate 10 mg 11/08/18 11:58 11/08/18 23:13 Compazine Inj IVP 10 mg Q6HR PRN Administration Nausea / Vomiting Sodium Chloride 10 ml 11/09/18 09:00 11/11/18 09:00 Normal Saline Flush 0.9% IVP Not Given 0100,0900,1700 JACQUES Sodium Chloride 10 ml 11/09/18 03:24 11/10/18 19:07 Normal Saline Flush 0.9% IVP 10 ml PRN PRN Administration NEEDED PER PROVIDER ORDERS - Physical Exam Wound/Incisions: positive: Dressing dry and intact General Appearance: positive: No acute distress (Just waking up.) Eyes Bilateral: positive: No lid inflammation, Conjunctivae nml, No scleral icterus ENT: positive: No signs of dehydration Neck: positive: Trachea midline Respiratory: positive: Chest non-tender, No respiratory distress, Breath sounds nml Cardiovascular: positive: Regular rate & rhythm Abdomen: positive: Nml bowel sounds, No distention, Tenderness (Incisional.) Skin: positive: Color nml Extremities: positive: Nml appearance Neurologic/Psychiatric: positive: Oriented x3, Motor nml, Sensation nml, Mood/affect nml ABX Reporting Has patient been on IV antibiotics over the past 48 hours?: Yes Impression/Plan - Problem List Problem List: D2 s/p exploratory laparotomy with resection of necrotic 13 inches of ileum due to closed loop obstruction with ileoileostomy 1) FEN Decrease IV fluids to 60 mL/hour, start general. Patient feeling rumbling consistent with the likely start of bowel function. 2) Activity Ambulate in halls TID and preferably more. 3) ID Stop antibiotics and check CBC in AM. Patient is currently afebrile, not tachycardic and not tachypneic. 30 minutes of [id number] time was spent with the patient, almost all in explanation and discussion, coordination of their care and completion of the requisite paperwork Dragon disclaimer: This document was created in part using voice recognition technology. Because of the inherent limitations of the system ([employer]'s [employer] user manual states that the licensee understands that speech recognition is a statistical process and that recognition errors are inherent in the process), occasional same sounding word substitutions and grammatical errors do occur and persist despite proofreading. Please read this document for context.
[2018-11-11] MEDS: SIMETHICONE CHEW 80 MG TABLET PO SCH ×4 (12:45→21:28)
[2018-11-11] MEDS: ONDANSETRON 4 MG/2 ML VIAL IVP PRN (13:36)
[2018-11-11] MEDS: SODIUM CHLORIDE FLUSH 0.9% 10 ML SYRINGE IVP PRN ×2 (13:36→18:23)
--- NOTE | 2018-11-11 15:37 | PROVIDER PROGRESS NOTE ---
Subjective - Prog Note Date Prog Note Date: 11/11/18 Prog Note Time: 15:35 - Subjective Pt reports feeling: Improved (Feels thirsty wants canberry juice.) Current Medications - Current Medications Current Medications: Active Medications Acetaminophen (Tylenol) 500 mg PO Q4HR PRN PRN Reason: Pain or Fever > 38C (100.4F) Last Admin: 11/11/18 09:36 Dose: 500 mg Benzonatate (Tessalon) 100 mg PO TID PRN PRN Reason: Cough Enoxaparin Sodium (Lovenox) 40 mg SUBQ DAILY [facility] Last Admin: 11/11/18 09:31 Dose: 40 mg Guaifenesin/Codeine Phosphate (Robitussin Ac) 5 ml PO Q6HR PRN PRN Reason: Cough Hydromorphone HCl (Dilaudid Inj Carp) 1 mg IVP Q2H PRN PRN Reason: Pain 8 to 10 Potassium Chloride/Dextrose/Sod Cl () 1,000 mls @ 60 mls/hr IV .[id number] [facility] Last Admin: 11/11/18 06:58 Dose: 60 mls/hr Ondansetron HCl (Zofran Inj) 4 mg IVP Q6HR PRN PRN Reason: Nausea / Vomiting Last Admin: 11/11/18 13:36 Dose: 4 mg Pantoprazole Sodium (Protonix) 40 mg PO QDAC [facility] Last Admin: 11/11/18 06:04 Dose: 40 mg Potassium Chloride (K-Dur) 20 meq PO DAILYWM [facility] Last Admin: 11/11/18 09:31 Dose: 20 meq Prochlorperazine Edisylate (Compazine Inj) 10 mg IVP Q6HR PRN PRN Reason: Nausea / Vomiting Last Admin: 11/08/18 23:13 Dose: 10 mg Simethicone (Mylicon) 80 mg PO 0900,1300,1800,2100 [facility] Last Admin: 11/11/18 15:21 Dose: 80 mg Sodium Chloride (Normal Saline Flush 0.9%) 10 ml IVP 0100,0900,1700 [facility] Last Admin: 11/11/18 09:00 Dose: Not Given Sodium Chloride (Normal Saline Flush 0.9%) 10 ml IVP PRN PRN PRN Reason: NEEDED PER PROVIDER ORDERS Last Admin: 11/11/18 13:36 Dose: 10 ml Dessicated Thyroid Otc 0 mg PO DAILY 11/08/18 Objective - Vital Signs/Intake & Output Vital Signs: Vital Signs x48h Temp Pulse Resp BP Pulse Ox 11/11/18 14:00 36.7 C 91 15 149/79 H 97 11/11/18 07:47 36.7 C 72 15 133/79 H 97 Vital Signs 11/11/18 11/11/18 07:47 14:00 Temperature 36.7 C 36.7 C Heart Rate [ 72 91 Brachial] Respiratory 15 15 Rate Blood Pressure 133/79 H 149/79 H [Right Brachial artery] O2 Saturation 97 97 Intake & Output: Intake & Output 11/08/18 11/09/18 11/10/18 11/11/18 23:59 23:59 23:59 23:59 Intake Total 3500.000 4497.083 4322.833 2021.333 Output Total 2862 5725 1600 Balance 3500.000 1635.083 -1402.167 421.333 - Objective General Appearance: positive: No acute distress, Alert, Anxious Eyes Bilateral: positive: Normal inspection, PERRL, EOMI, Conjunctivae nml ENT: positive: Pharynx nml, Dry mucous membranes Neck: positive: Nml inspection, Thyroid nml, No JVD, Trachea midline. negative: Thyromegaly, Carotid bruit Respiratory: positive: Chest non-tender, No respiratory distress, Breath sounds nml Cardiovascular: positive: Regular rate & rhythm, No murmur, No gallop. negative: Irregularly irregular, JVD present Peripheral Pulses: 2+ Radial (R), 2+ Radial (L), 2+ Dorsalis pedis (R), 2+ Dorsalis pedis (L) Abdomen: positive: Tenderness (surgical site clean, dry and intact with erthyema) Skin: positive: Color nml, No rash, Warm Extremities: positive: Non-tender, Full ROM, Nml appearance Neurologic/Psychiatric: positive: Oriented x3, CN's nml (2-12) - Lab Results Fish Bones: 11/11/18 04:33 11/11/18 04:33 Other Labs: Lab Results x24hrs 11/11/18 11/11/18 11/11/18 Range/Units 04:33 04:33 04:33 WBC 8.2 (4.8-10.8) x10^3/uL RBC 3.04 L (4.20-5.40) 10^6/uL Hgb 9.3 L (12.0-16.0) g/dL Hct 28.4 L (37.0-47.0) % MCV 93.5 (81.0-99.0) fL MCH 30.5 (27.0-31.0) pg MCHC 32.7 (32.0-36.0) g/dL RDW 14.2 (12.0-15.0) % Plt Count 163 (130-450) 10^3/uL MPV 8.1 (7.9-10.8) fL Neut # (Auto) 4.9 (1.5-6.6) 10^3/uL Lymph # (Auto) 2.5 (1.5-3.5) 10^3/uL [place] # (Auto) 0.6 (0.0-1.0) 10^3/uL Eos # (Auto) 0.1 (0.0-0.7) 10^3/uL Baso # (Auto) 0.0 (0.0-0.1) 10^3/uL Absolute Nucleated RBC 0.00 x10^3/uL Nucleated RBC % 0.0 /100WBC Sodium 137 (135-145) mmol/L Potassium 3.2 L (3.5-5.0) mmol/L Chloride 105 (101-111) mmol/L Carbon Dioxide 25 (21-32) mmol/L Anion Gap 7.0 (6-13) BUN 8 (6-20) mg/dL Creatinine 0.5 (0.4-1.0) mg/dL Estimated GFR (MDRD) 127 (>89) Glucose 103 H (70-100) mg/dL Calcium 8.5 (8.5-10.3) mg/dL Magnesium 2.2 (1.7-2.8) mg/dL - Diagnostic Imaging Diagnostic Imaging Results: positive: Final report reviewed ABX Reporting Has patient been on IV antibiotics over the past 48 hours?: Yes Sepsis Event Note (H) - Evaluation Current Stage of Sepsis: Resolved (Sepsis sec to necrotic bowel with Lactic acid normalized) Confirmed Source and Organism (if known) of Sepsis: Necrotic bowel that was resected Assessment/Plan - Problem List (1) Ischemic necrosis of small bowel Impression: s/p resection, POD #2 after exploratory lap and resection of necrotic ileum. Continue management as per surgeon: continue iv fluids, NGT removed, on full liquid diet, out of ICU, Parsons out, increase ambulation, labs in am. (2) Hypokalemia Impression: Likely sec to GI losses, continue IVF's, correct levels, check mag and correct. (3) Macrocytic anemia Impression: MCV slightly elevated, with some losses intra-operative, not needing transfusions at this point, would monitor for now. (4) Abdominal pain Impression: Over surgical site, which looks slightly erythematous, not infected and would continue with empiric IV abx w/ zosyn. Continue with post-op pain control. Qualifiers: Abdominal location: periumbilical Qualified Code(s): R10.33 - Periumbilical pain (5) Sepsis Impression: Secondary to necrtoic bowel. Now with resection. RESOLVED> Lactic acid normalized. Continue empiric IV antibiotics since she had bowel, as per surgery. Follow clinically and CBC. Qualifiers: Sepsis type: sepsis due to unspecified organism Qualified Code(s): A41.9 - Sepsis, unspecified organism
[2018-11-11] MEDS: PROCHLORPERAZINE 10 MG/2 ML VIAL IVP PRN (18:23)
[2018-11-11] MEDS ORDERED: LORazepam 0.5 MG TABLET PO PRN (20:13)
[2018-11-12] MEDS: SODIUM CHLORIDE FLUSH 0.9% 10 ML SYRINGE IVP SCH ×2 (00:35→09:14)
[2018-11-12] MEDS: PANTOPRAZOLE 40 MG TABLET PO SCH (04:46)
[2018-11-12 04:56] LABS: BASOPHILS % (AUTO) 0.3 %; EOSINOPHILS # (AUTO) 0.1 10^3/uL (0.0-0.7); EOSINOPHILS % (AUTO) 1.4 %; HGB - HEMOGLOBIN 10.3 g/dL (12.0-16.0); LYMPHOCYTES # (AUTO) 2.3 10^3/uL (1.5-3.5); LYMPHOCYTES % (AUTO) 26.3 %; MEAN CORPUSCULAR HEMOGLOBIN 31.7 pg (27.0-31.0); MEAN CORPUSCULAR HGB CONC 34.5 g/dL (32.0-36.0); MEAN CORPUSCULAR VOLUME 91.8 fL (81.0-99.0); MEAN PLATELET VOLUME 7.6 fL (7.9-10.8); MONOCYTES # (AUTO) 0.7 10^3/uL (0.0-1.0); NEUTROPHILS # (AUTO) 5.5 10^3/uL (1.5-6.6); PLT - PLATELET COUNT 230 10^3/uL (130-450); RED BLOOD COUNT 3.27 10^6/uL (4.20-5.40); RED CELL DISTRIBUTION WIDTH 14.2 % (12.0-15.0); WHITE BLOOD COUNT 8.6 x10^3/uL (4.8-10.8)
[2018-11-12 04:59] LABS: CALCIUM 8.9 mg/dL (8.5-10.3); CREATININE 0.5 mg/dL (0.4-1.0)
[2018-11-12 09:12] VITALS: BP 142/90
[2018-11-12] MEDS: POTASSIUM CHLORIDE 20 MEQ TABLET PO SCH (09:14)
[2018-11-12] MEDS: ENOXAPARIN 40 MG/0.4 ML SYRINGE SUBQ SCH (09:14)
[2018-11-12] MEDS: SIMETHICONE CHEW 80 MG TABLET PO SCH ×2 (11:41→13:05)
--- NOTE | 2018-11-12 12:36 | DISCHARGE SUMMARY ---
"Discharge Summary Admit Date: 11/08/18 Discharge Date: 11/12/18 Discharging Provider: Bhanu Olvera MD Code Status: Attempt Resuscitation Condition at Discharge: Good Discharge Disposition: 01 Home, Self Care - DIAGNOSES Admission Diagnoses: Abdominal pain Discharge Diagnoses with Status of Each Condition: Abdominal pain was due to a closed loop small bowel obstruction, this has been resected and the pain resolved. - HPI History of Present Illness: Very pleasant 58 year old female presented with abrupt onset of abdominal pain. Patient taken to operating room when clinical picture was worsening and a closed loop small bowel obstruction was noted and resected with an ileoileostomy formed. Patient did very well postoperatively and is being discharged tolerating a general diet with only OTC pain medication required. - CONSULTS | PROCEDURES Consultations: Bhanu Olvera MD Procedures: Exploratory laparotomy for abdominal catastrophe finding a closed loop small bowel obstruction - resected and ileoileostomy created to preserve continuity. - HOSPITAL COURSE Hospital Course: Uncomplicated. - ALLERGIES Allergies/Adverse Reactions: Allergies Allergy/AdvReac Type Severity Reaction Status Date / Time No Known Drug Allergies Allergy Verified 11/08/18 07:41 - MEDICATIONS Home Medications: Ambulatory Orders Medication Instructions Recorded Confirmed Dessicated Thyroid Otc 0 mg PO DAILY 11/08/18 11/08/18 - PHYSICAL EXAM AT DISCHARGE General Appearance: positive: No acute distress Eyes Bilateral: positive: No lid inflammation, Conjunctivae nml, No scleral icterus ENT: positive: No signs of dehydration Neck: positive: Trachea midline Respiratory: positive: Chest non-tender, No respiratory distress, Breath sounds nml Cardiovascular: positive: Regular rate & rhythm Abdomen: positive: No organomegaly, Nml bowel sounds, No distention, Tenderness (Mild incisional only.) Skin: positive: Color nml Extremities: positive: Non-tender, Full ROM, Nml appearance Neurologic/Psychiatric: positive: Oriented x3, Motor nml, Sensation nml, Mo od/affect nml - LABS Result Diagrams: 11/12/18 04:40 11/12/18 04:40 - SEPSIS Current Stage of Sepsis: Ruled out (The SOFA score never demonstrated sepsis. Clinically not present.) - FOLLOW UP Follow Up: Dr. Bhanu Olvera in 1 week for wound check and staple removal. - TIME SPENT Time Spent in Discharge (Minutes): 45"
--- NOTE | 2018-11-12 12:44 | Discharge Plan ---
Discharge Plan Disposition: 01 Home, Self Care Condition: Good Diet: Regular Activity Restrictions: No lifting >15 pounds for 6 weeks. Shower Restrictions: No Driving Restrictions: No Assistance Devices: Other (None.) Weight Bearing: Full Weight Additional Instructions or Follow Up instructions: Call with ANY questions or concerns. No Smoking: If you smoke, Please STOP! Call for help. Follow-up with: Bhanu Olvera MD [Provider Admit Priv/Credential] -
--- NOTE | 2018-11-12 13:41 | PROVIDER PROGRESS NOTE ---
Subjective - Prog Note Date Prog Note Date: 11/12/18 Prog Note Time: 13:38 - Subjective Pt reports feeling: Improved Subjective: Abdominal pain improved with regular diet advanced w/o issues Current Medications - Current Medications Current Medications: Active Medications Acetaminophen (Tylenol) 500 mg PO Q4HR PRN PRN Reason: Pain or Fever > 38C (100.4F) Last Admin: 11/11/18 09:36 Dose: 500 mg Benzonatate (Tessalon) 100 mg PO TID PRN PRN Reason: Cough Enoxaparin Sodium (Lovenox) 40 mg SUBQ DAILY [facility] Last Admin: 11/12/18 09:14 Dose: 40 mg Guaifenesin/Codeine Phosphate (Robitussin Ac) 5 ml PO Q6HR PRN PRN Reason: Cough Hydromorphone HCl (Dilaudid Inj Carp) 1 mg IVP Q2H PRN PRN Reason: Pain 8 to 10 Last Admin: 11/11/18 23:23 Dose: 1 mg Potassium Chloride/Dextrose/Sod Cl () 1,000 mls @ 60 mls/hr IV .[id number] [facility] Last Admin: 11/11/18 22:31 Dose: 60 mls/hr Lorazepam (Ativan) 0.5 mg PO Q6H PRN PRN Reason: Anxiety Last Admin: 11/11/18 21:27 Dose: 0.5 mg Ondansetron HCl (Zofran Inj) 4 mg IVP Q6HR PRN PRN Reason: Nausea / Vomiting Last Admin: 11/11/18 13:36 Dose: 4 mg Pantoprazole Sodium (Protonix) 40 mg PO QDAC [facility] Last Admin: 11/12/18 04:46 Dose: 40 mg Potassium Chloride (K-Dur) 20 meq PO DAILYWM [facility] Last Admin: 11/12/18 09:14 Dose: Not Given Prochlorperazine Edisylate (Compazine Inj) 10 mg IVP Q6HR PRN PRN Reason: Nausea / Vomiting Last Admin: 11/11/18 18:23 Dose: 10 mg Simethicone (Mylicon) 80 mg PO 0900,1300,1800,2100 [facility] Last Admin: 11/12/18 13:05 Dose: Not Given Sodium Chloride (Normal Saline Flush 0.9%) 10 ml IVP 0100,0900,1700 [facility] Last Admin: 11/12/18 09:14 Dose: Not Given Sodium Chloride (Normal Saline Flush 0.9%) 10 ml IVP PRN PRN PRN Reason: NEEDED PER PROVIDER ORDERS Last Admin: 11/11/18 18:23 Dose: 10 ml Dessicated Thyroid Otc 0 mg PO DAILY 11/08/18 Objective - Vital Signs/Intake & Output Reviewed Vital Signs: Yes Vital Signs: Vital Signs x48h Temp Pulse Resp BP Pulse Ox 11/12/18 09:11 37 C 84 16 142/90 H 100 Intake & Output: Intake & Output 11/09/18 11/10/18 11/11/18 11/12/18 23:59 23:59 23:59 23:59 Intake Total 4497.083 4322.833 3524.333 750 Output Total 2862 5788 2050 800 Balance 1635.083 -1580.095 7045.333 -50 - Objective General Appearance: positive: No acute distress Eyes Bilateral: positive: PERRL, EOMI ENT: positive: Pharynx nml Neck: positive: Thyroid nml, No JVD Respiratory: positive: Chest non-tender, No respiratory distress, Breath sounds nml Cardiovascular: positive: Regular rate & rhythm, No murmur, No gallop Abdomen: positive: No organomegaly, Nml bowel sounds, No distention, Tenderness (over surgical site which is clean, dry and intact) Skin: positive: Color nml, No rash Extremities: positive: Non-tender, Full ROM, Nml appearance Neurologic/Psychiatric: positive: Oriented x3, CN's nml (2-12) - Lab Results Fish Bones: 11/12/18 04:40 11/12/18 04:40 Other Labs: Lab Results x24hrs 11/12/18 11/12/18 Range/Units 04:40 04:40 WBC 8.6 (4.8-10.8) x10^3/uL RBC 3.27 L (4.20-5.40) 10^6/uL Hgb 10.3 L (12.0-16.0) g/dL Hct 30.0 L (37.0-47.0) % MCV 91.8 (81.0-99.0) fL MCH 31.7 H (27.0-31.0) pg MCHC 34.5 (32.0-36.0) g/dL RDW 14.2 (12.0-15.0) % Plt Count 230 (130-450) 10^3/uL MPV 7.6 L (7.9-10.8) fL Neut # (Auto) 5.5 (1.5-6.6) 10^3/uL Lymph # (Auto) 2.3 (1.5-3.5) 10^3/uL Yates # (Auto) 0.7 (0.0-1.0) 10^3/uL Eos # (Auto) 0.1 (0.0-0.7) 10^3/uL Baso # (Auto) 0.0 (0.0-0.1) 10^3/uL Absolute Nucleated RBC 0.00 x10^3/uL Nucleated RBC % 0.0 /100WBC Sodium 135 (135-145) mmol/L Potassium 3.4 L (3.5-5.0) mmol/L Chloride 100 L (101-111) mmol/L Carbon Dioxide 26 (21-32) mmol/L Anion Gap 9.0 (6-13) BUN 12 (6-20) mg/dL Creatinine 0.5 (0.4-1.0) mg/dL Estimated GFR (MDRD) 127 (>89) Glucose 121 H (70-100) mg/dL Calcium 8.9 (8.5-10.3) mg/dL ABX Reporting Has patient been on IV antibiotics over the past 48 hours?: Yes Sepsis Event Note (H) - Evaluation Current Stage of Sepsis: Ruled out (The SOFA score never demonstrated sepsis. Clinically not present.) Assessment/Plan - Problem List (1) Ischemic necrosis of small bowel Impression: continue with post-op care per surgical service, advance diet to regular, bowel regime, f/u with surgery as scheduled, Would recommend 3 more days of Augmentin to cover for at least 7 days of total abx for a necrotic bowel that has been resected now. (2) Hypokalemia Impression: K at 3.4 on d/c refusing KCL (3) Macrocytic anemia Impression: Stable with no need for transfusions (4) Abdominal pain Impression: Improved over surgical site w/o distention and tolerating diet. Pain control as outpatient Qualifiers: Abdominal location: periumbilical Qualified Code(s): R10.33 - Periumbilical pain
== END 2018-11-12 15:15 | disposition home or self-care (01) | DRG 330 ==
LOC: EDBD → ED 07:31 → MS2 11:58 → ICU 23:59 → MS3 11-09 19:08
PROVIDERS: ADMIT Internal Medicine; ATTEND Family Medicine
PROC: 0DBB0ZZ Excision of Ileum, Open Approach (ICD-10-PCS; principal; 2018-11-09 01:32)
DX: K55.021 Focal (segmental) acute infarction of small intestine (principal); K56.609 Unspecified intestinal obstruction, unspecified as to partial versus complete obstruction; R64 Cachexia; Z90.710 Acquired absence of both cervix and uterus; Z68.23 Body mass index [BMI] 23.0-23.9, adult; R11.2 Nausea with vomiting, unspecified; E87.6 Hypokalemia; D53.9 Nutritional anemia, unspecified
CPT/HCPCS: 36415; 71045; 74174; 74176; 74177; 80048; 80053; 81001; 81003; 82378; 83605; 83690; 83735; 85025; 86140; 86850; 86900; 86901; 87040; 87086; 87150; 96361; 96365; 96367; 96375; 99283; 99284